=== PATIENT | male | born 1990 | race Caucasian/White ===

== ENCOUNTER 2019-03-09 22:35 | Emergency (ER) | payer MEDICAID, SELFPAY ==
[2019-03-09 22:35] VITALS: BP 125/69; PULSE 86; RESP 18; TEMP 36.8; O2SAT 97; BMI 29.3
--- NOTE | 2019-03-09 22:43 | CT_ITS ---
STUDY: CT ABDOMEN AND PELVIS WITHOUT CONTRAST REASON FOR EXAM: Male, 29 years old. Left flank pain RADIATION DOSAGE (If Supplied By Facility): CTDIvol = ( 7.67 ) mGy, DLP = ( 369.74 ) mGycm TECHNIQUE: Transaxial images were obtained from the dome of the diaphragm to the symphysis pubis without oral contrast, and without intravenous contrast. Sagittal and coronal images were reconstructed. Individualized dose optimization techniques were used for this CT. COMPARISON: July 16, 2015 CT abdomen and pelvis FINDINGS: The visualized lung bases are unremarkable. The visualized portions of the heart are within normal limits. Normal liver. Normal gallbladder and extrahepatic biliary system. Normal spleen. Normal pancreas. Normal bilateral adrenal glands. Normal right kidney. Normal left kidney. Normal visualized stomach. Normal small intestine. Normal colon. The appendix is visualized and appears normal. Normal abdominal aorta. Normal inferior vena cava. Normal retroperitoneum. Normal urinary bladder. Normal abdominal wall. Normal osseous structures. Minute sclerotic lesions bilateral femoral heads consistent with probable bone islands. CT/Abdomen/Pelvis without Cont IMPRESSION: No acute disease. No radiodense urolithiasis. Electronically Signed: Dharmesh Wang MD at 23:29 EDT , Service support ,
--- NOTE | 2019-03-09 22:43 | ED.VISSUMM ---
- ER Visit Summary Date of Service: 03/09/19 Chief Complaint: Flank pain] History of Present Illness: The patient is a 29 M presents to the emergency department flank pain. The patient symptoms began yesterday. He states he had a dull ache in his left flank. He states he would come and go. He is also notices a difficult time urinating. He does not think he had any blood in the urine. He does have history of kidney stone and states that this feels similar. He also has had some nausea, vomiting, diarrhea today. He attributes this to a burrito that he ate at a gas station. He denies any fevers or chills. He is otherwise been in his normal state of health. He has never required lithotripsy or stenting in the past. Physical Examination: Vital signs reviewed General: Well-nourished, well-developed Head: Normocephalic, atraumatic Eyes: Pupils equal and reactive, extraocular muscles intact Neck, supple, no lymphadenopathy Heart: Regular rate and rhythm Respiratory: No distress, clear bilaterally Abdomen: Soft, nontender, nondistended, no peritoneal signs Back: Mild left CVA tenderness Extremities: Nontender, no edema, no cords Skin: Normal color no rash Neuro: Alert and oriented, no focal or lateralizing deficits Test Results: [] Emergency Department Course and Treatment: Patient has very minimal pain in the left CVA. IV was established. He was given fluids, Toradol, and antiemetics. He had marked improvement of his symptoms. Patient underwent CT imaging. There is no definitive stone or evidence of obstruction that is seen. There is some trace blood on his urine. My suspicion is he may have Mal passed a small stone. He is resting comfortably. I do feel that he is safe for outpatient therapy. He will be treated with Zofran and Toradol. He was counseled on concerning symptoms and reasons to return. He will be discharged home. Treatment Plan: [] Disposition: Discharge Impression: 1. Urolithiasis 2. Gastroenteritis This note was generated with [employer] dictation software. It may contain incorrect words, spelling, and punctuation that were not noted in review of the chart prior to signing ED Disposition - Plan for ED Patient: Disposition: Home or Assisted Living Instructions: ED Stone Renal W Colic Prescriptions: Ondansetron [Zofran Odt] 4 mg PO Q8H PRN PRN #10 tab PRN Reason: Nausea RX: Naproxen [Naprosyn] 500 mg PO BID PRN #20 tab Referrals: NOT,DEFINED [NON-STAFF] -
[2019-03-09] MEDS: 0.9% Normal Saline 1,000 ML 250 ML IV (22:56)
[2019-03-09] MEDS: Ketorolac 30 MG/ML Syringe IV (22:56)
[2019-03-09] MEDS: Ondansetron 4 MG/2 ML Vial IV (22:56)
[2019-03-09 23:06] LABS: Absolute Lymphocyte Count 1.88 X10^3/ul (0.83-4.51); Absolute Neutrophil Count 3.8 X10^3/uL (2.0-7.7); Basophil# 0.02 X10^3/uL; Basophil% 0.3 % (0-1); Eosinophil# 0.24 X10^3/uL; Eosinophils% 3.5 % (0-5); Hematocrit 41.8 % (40-54); Hemoglobin 14.1 g/dl (13.0-16.5); Lymphocyte # 1.88 X10^3/ul (4.0); Lymphocyte % 27.3 % (19-41); Mean Corp Hgb Conc 33.7 g/gl (32-36); Mean Corpuscular Hgb 30.9 pg (27.0-32.0); Mean Corpuscular Volume 91.5 fL (80-94); Monocyte# 0.88 X10^3/uL; Monocyte% 12.8 % (0-10); Neutrophil # 3.84 X10^3/uL (2.7-7.7); Neutrophil % 55.7 % (47-70); POSITIVE COUNT NO; POSITIVE DIFFERENTIAL NO; POSITIVE MORPHOLOGY NO; Platelet Count 269 K/mm3 (150-450); RBC Distribution Width CV 13.1 % (11.6-14.6); RBC Distribution Width SD 43.4 fl (35.1-43.9); Red Blood Count 4.57 M/mm3 (4.6-6.2); White Blood Count 6.9 K/mm3 (4.4-11.0)
[2019-03-09 23:20] LABS: Anion Gap 7 (5-15); BUN 13 mg/dL (7-18); Calcium,Total 8.5 mg/dL (8.5-10.1); Chloride 107 mmol/L (98-107); Creatinine, Serum 1.18 mg/dL (0.70-1.30); EST Glomerular Filtration Rate 78 mL/min (>60); Est Glom Filt Rate - Afr Amer 94 mL/min (>60); Estimated Creatinine Clearance 83.35 ml/min; Glucose 107 mg/dL (74-106); Potassium 3.7 mmol/L (3.5-5.1); Sodium Level 142 mmol/L (136-145)
[2019-03-09 23:50] LABS: Bacteria 0 SEEN /hpf (None Seen); Mucous, Urine 0 SEEN /hpf (<or=2+); Squamous Epithelial Cells - UA 0 SEEN /hpf (0-5)
[2019-03-09 23:52] LABS: Color, Urine Yellow (Yellow); Glucose, Dipstick Normal (Normal); Ketone-Dipstick 5 mg/dl (Negative); Leukocyte Esterase-Dipstick 25 /ul (Negative); Nitrite-Dipstick Negative (Negative); Occult Blood-Urine 150 /ul (Negative); Protein-Dipstick Negative (Negative); Specific Gravity, Urine 1.025 (1.002-1.030); Urine Bilirubin Dipstick Negative (Negative); Urine Clarity Clear (Clear); Urine Urobilinogen 4 mg/dl (Normal)
[2019-03-10 00:04] LABS: Red Blood Cells-Urine 5-10 SEEN /hpf (0-5); White Blood Cells 0-5 SEEN /hpf (0-5)
[2019-03-10 00:17] VITALS: BP 128/71; PULSE 76; RESP 16; O2SAT 99
== END 2019-03-10 00:19 | disposition home or self-care (01) ==
PROVIDERS: Emergency Provider Emergency Medicine
DX: N20.9 Urinary calculus, unspecified (principal); K52.9 Noninfective gastroenteritis and colitis, unspecified; Z87.442 Personal history of urinary calculi
CPT/HCPCS: 74176; 80048; 81001; 85025; 96361; 96374; 96375; 99284; J7030; A4216; J2405

== ENCOUNTER 2019-08-06 12:58 | Emergency (ER) | payer MEDICAID, SELFPAY ==
[2019-08-06 12:58] VITALS: BP 113/67; PULSE 98; RESP 18; TEMP 36.2; O2SAT 99; BMI 28.8
--- NOTE | 2019-08-06 13:31 | CT_ITS ---
STUDY: CT ABDOMEN AND PELVIS WITH CONTRAST REASON FOR EXAM: Male, 29 years old. Abdominal pain with nausea and diarrhea. RADIATION DOSAGE (If Supplied By Facility): CTDIvol = ( 13.62 ) mGy, DLP = ( 704.85 ) mGycm TECHNIQUE: Transaxial images were obtained from the dome of the diaphragm to the symphysis pubis with oral contrast. IV/Oral Isovue 300 100CC was administered. Sagittal and coronal images were reconstructed. Individualized dose optimization techniques were used for this CT. COMPARISON: Comparison is made with prior examination dated March 09, 2019. FINDINGS: Mild degree of dependent bibasilar atelectasis. The visualized portions of the heart are within normal limits. Normal liver. Normal gallbladder and extrahepatic biliary system. Normal spleen. Normal pancreas. Normal bilateral adrenal glands. Normal right kidney. Normal left kidney. Normal visualized stomach. There is evidence of small bowel thickening in keeping with a edematous changes involving the ileum as well as the terminal ileum. Increased markings in the surrounding peritoneal fat. Findings are in keeping with inflammatory bowel disease such as Crohn's. There is also evidence of inflammatory changes in the right hemicolon. Scattered sigmoid diverticula. The appendix is visualized and appears normal. Normal abdominal aorta. Normal inferior vena cava. There is borderline retroperitoneal lymphadenopathy with enlarged nodes no greater than 10mm in the short axis diameter. Normal urinary bladder. Small amount of free fluid is seen in the right paracolic gutter. Normal abdominal wall. Normal osseous structures. CT/Abdomen/Pelvis WITH Contrast IMPRESSION: Findings in keeping with a small bowel inflammatory disease as described with fluid in the right flank. Crohn's disease should be ruled out. Electronically Signed: Brian Montgomery, at 15:45 EDT , Service support ,
--- NOTE | 2019-08-06 13:32 | ED.DCSUM_ITS ---
History of Present Illness Chief Complaint: Abd Pain Informant: Patient Onset: Today Context: Gradual Onset Current Severity: Mild Maximum Severity: Moderate Narrative: Patient presents with abdominal pain. He states pain woke him up from sleep at 3 AM this morning. He points to the area from the epigastrium to the umbilicus. He had some mild nausea and some slightly loose stool. He felt like he was running a fever this morning and states that he was sweating. He went to urgent care but was sent here due to concerns for appendicitis. Patient denies any prior abdominal surgeries. He initially thought he just had an ulcer. He does report some reflux symptoms recently. Past Medical History - Allergies and Home Meds Allergies/Adverse Reactions: Allergies amoxicillin Allergy (Verified 08/06/19 12:58) Anaphylaxis Penicillins Allergy (Verified 10/25/16 13:21) Anaphylaxis Primary Care Physician: Care Physician,No Primary [Primary Care Provider] - Prior records reviewed: Yes Past Medical History: - - Reviewed Lives: Spouse/ Significant Other Smoking Status: Current every day smoker Review of Systems General: Reports: Fever Eyes: Denies: Visual changes - bilaterally ENT: Denies: Bilateral ear pain Cardiovascular: Denies: Chest pain Respiratory: Denies: Dyspnea, Cough Gastrointestinal: Reports: Abdominal pain, Nausea, Diarrhea. Denies: Vomiting Genitourinary: Denies: Dysuria Musculoskeletal: Denies: Extremity Pain Skin: Denies: Rash Neurological: Denies: Headache Psych: Denies: Depression, Anxiety Hematologic: Denies: Easy bruising Physical Exam Vital Signs/Narrative: Vital Signs Temp Pulse Resp BP Pulse Ox 08/06/19 12:58 97.1 F L 98 18 113/67 99 Inital Vital Signs reviewed: Yes General: Well nourished, Well developed Head: Normocephalic ENT: Moist mucous membranes Neck: Supple Cardiovascular: Regular rate, Regular rhythm Respiratory: No distress, CTA bilaterally Abdomen: Soft, Nondistended, Normal bowel sounds, Tender - Mild tenderness in the right lower quadrant. He does not have tenderness in the epigastrium on exam. Extremities: Nontender Skin: Normal color, No rash Neurological: Alert, Oriented x3 Psychological: Normal affect Diagnostic/Tx/Re-eval Impressions Abdomen/Pelvis CT 08/06/19 13:31 IMPRESSION: Findings in keeping with a small bowel inflammatory disease as described with fluid in the right flank. Crohn's disease should be ruled out. Electronically Signed: Brian Montgomery, at 15:45 EDT , Service support , 08/06/19 13:31 Abdomen/Pelvis WITH Contrast [CT] Stat Laboratory Results 08/06/19 08/06/19 08/06/19 13:45 13:45 14:10 WBC 11.6 H RBC 4.92 Hgb 15.4 Hct 46.0 MCV 93.5 MCH 31.3 MCHC 33.5 RDW Std Deviation 43.1 RDW Coeff of Katie 12.4 Plt Count 256 MPV 10.1 Immature Gran % (Auto) 0.400 Neut % (Auto) 81.0 H Lymph % (Auto) 8.4 L [place] % (Auto) 9.0 Eos % (Auto) 0.9 Baso % (Auto) 0.3 Absolute Neuts (auto) 9.4 H Absolute Lymphs (auto) 0.97 Nucleated RBC % 0 Sodium 139 Potassium 4.3 Chloride 106 Carbon Dioxide 28.0 Anion Gap 5 BUN 9 Creatinine 0.94 Estim Creat Clear Calc 104.64 Est GFR (MDRD) Af Amer 121 Est GFR (MDRD) Non-Af 100 BUN/Creatinine Ratio 9.6 L Glucose 94 Calcium 8.8 Urine Color Yellow Urine Clarity Clear Urine pH 7.0 Ur Specific [place] 1.005 Urine Protein Negative Urine Glucose (UA) Normal Urine Ketones Negative Urine Occult Blood Negative Urine Nitrite Negative Urine Bilirubin Negative Urine Urobilinogen Normal Ur Leukocyte Esterase Negative Urine RBC 0 SEEN Urine WBC 0 SEEN Ur Squamous Epith Cells 0 SEEN Urine Bacteria 0 SEEN Urine Mucus 0 SEEN - Medical Decision Making Patient was given morphine and Zofran for pain on arrival. Imaging results are discussed with patient. He denies any family history of Crohn's disease. He will be given short course of steroids to help with inflammation. He will be referred to both Dr. Recio, on-call for surgery as well as Dr. Jones. ED Disposition - Plan for ED Patient: Disposition: Home or Assisted Living Diagnosis: Inflammatory bowel disease (Crohn's disease) Instructions: What Is Crohn's Disease? Prescriptions: Prednisone 10 mg PO UD #33 tablet Referrals: Shey Recio MD [STAFF PHYSICIAN] - Piero Jones MD [NON-STAFF] -
[2019-08-06] MEDS: Morphine 4 MG/ML Syringe IV (13:41)
[2019-08-06] MEDS: Ondansetron 4 MG/2 ML Vial IV (13:41)
[2019-08-06] MEDS: 0.9% Normal Saline 1,000 ML 150 ML IV (13:41)
[2019-08-06 13:51] LABS: Absolute Lymphocyte Count 0.97 X10^3/uL (0.83-4.51); Absolute Neutrophil Count 9.4 X10^3/uL (2.0-7.7); Basophil# 0.03 X10^3/uL; Basophil% 0.3 % (0-1); Eosinophils% 0.9 % (0-5); Hemoglobin 15.4 g/dL (13.0-16.5); Lymphocyte # 0.97 X10^3/ul (4.0); Lymphocyte % 8.4 % (19-41); Mean Corp Hgb Conc 33.5 g/dL (32-36); Mean Corpuscular Hgb 31.3 pg (27.0-32.0); Mean Corpuscular Volume 93.5 fL (80-94); Mean Platelet Vol. 10.1 fl (6.2-12.0); Monocyte# 1.04 X10^3/uL; NRBC Flagged by Analyzer 0 % (0-5); Neutrophil # 9.42 X10^3/uL (2.7-7.7); Platelet Count 256 K/mm3 (150-450); RBC Distribution Width CV 12.4 % (11.6-14.6); RBC Distribution Width SD 43.1 fl (35.1-43.9); Red Blood Count 4.92 M/mm3 (4.6-6.2); White Blood Count 11.6 K/mm3 (4.4-11.0)
[2019-08-06 14:05] LABS: Anion Gap 5 (5-15); BUN 9 mg/dL (7-18); BUN/Creat Ratio 9.6 RATIO (10-20); Calcium,Total 8.8 mg/dL (8.5-10.1); Chloride 106 mmol/L (98-107); Creatinine, Serum 0.94 mg/dL (0.70-1.30); EST Glomerular Filtration Rate 100 mL/min (>60); Est Glom Filt Rate - Afr Amer 121 mL/min (>60); Estimated Creatinine Clearance 104.64 ml/min; Glucose 94 mg/dL (74-106); Potassium 4.3 mmol/L (3.5-5.1); Sodium Level 139 mmol/L (136-145)
[2019-08-06 14:20] LABS: Bacteria 0 SEEN /hpf (None Seen); Mucous, Urine 0 SEEN /hpf (<or=2+); Red Blood Cells-Urine 0 SEEN /hpf (0-5); Squamous Epithelial Cells - UA 0 SEEN /hpf (0-5); White Blood Cells 0 SEEN /hpf (0-5)
[2019-08-06 14:41] LABS: Color, Urine Yellow (Yellow); Glucose, Dipstick Normal (Normal); Ketone-Dipstick Negative (Negative); Leukocyte Esterase-Dipstick Negative /ul (Negative); Nitrite-Dipstick Negative (Negative); Occult Blood-Urine Negative /ul (Negative); Protein-Dipstick Negative (Negative); Specific Gravity, Urine 1.005 (1.002-1.030); Urine Bilirubin Dipstick Negative (Negative); Urine Clarity Clear (Clear); Urine Urobilinogen Normal (Normal)
[2019-08-06] MEDS: predniSONE 20 MG Tablet 40 MG PO (16:16)
== END 2019-08-06 16:25 | disposition home or self-care (01) ==
PROVIDERS: Emergency Provider Emergency Medicine
DX: K50.90 Crohn's disease, unspecified, without complications (principal); F17.200 Nicotine dependence, unspecified, uncomplicated; Z88.0 Allergy status to penicillin
CPT/HCPCS: 74177; 80048; 81001; 85025; 96361; 96374; 96375; 99284; J7030; Q9967; J2405

== ENCOUNTER 2020-02-17 15:00 | Emergency (ER) | payer MEDICAID, SELFPAY ==
[2020-02-17 15:00] VITALS: BP 124/86; PULSE 114; RESP 16; TEMP 36.7; O2SAT 98; BMI 27.8
--- NOTE | 2020-02-17 15:23 | CT_ITS ---
STUDY: CT ABDOMEN AND PELVIS WITHOUT CONTRAST REASON FOR EXAM: Male, 30 years old. COUGH SOB, N/V/D, FEVER RADIATION DOSAGE (If Supplied By Facility): CTDIvol = ( 7.05 ) mGy, DLP = ( 348.83 ) mGycm TECHNIQUE: Transaxial images were obtained from the dome of the diaphragm to the symphysis pubis without oral contrast, and without intravenous contrast. Sagittal and coronal images were reconstructed. Individualized dose optimization techniques were used for this CT. COMPARISON: 08/06/2019 FINDINGS: The visualized lung bases are unremarkable. The visualized portions of the heart are within normal limits. Normal liver. Normal gallbladder and extrahepatic biliary system. Normal spleen. Normal pancreas. Normal bilateral adrenal glands. Normal right kidney. Normal left kidney. Normal visualized stomach. Normal small intestine. Normal colon. The appendix is visualized and appears normal. Normal abdominal aorta. Normal inferior vena cava. Normal retroperitoneum. Normal urinary bladder. Normal abdominal wall. Normal osseous structures. CT/Abdomen/Pelvis without Cont IMPRESSION: Normal unenhanced CT of the abdomen and pelvis. Electronically Signed: Benoit López MD at 16:25 EDT Tel , Service support ,
--- NOTE | 2020-02-17 15:23 | EKG12_ITS ---
Test Reason : SOB Blood Pressure : / mmHG Vent. Rate : 085 BPM Atrial Rate : 085 BPM P-R Int : 126 ms QRS Dur : 094 ms QT Int : 380 ms P-R-T Axes : 028 041 019 degrees QTc Int : 452 ms Normal sinus rhythm Normal ECG Confirmed by BIMAL RIVERA ([id number]), slot editor ALESSANDRA LEAL ([id number]) on 02/21/2020 1:17:25 PM Referred By: JOHN Confirmed By:BIMAL RIVERA
--- NOTE | 2020-02-17 15:27 | ED.VIS.GI ---
History of Present Illness Chief Complaint: Shortness of Breath Narrative: Patient presenting for evaluation due to concern for an exacerbation of inflammatory bowel disease. Patient reports that he had a indeterminate diagnosis of inflammatory bowel disease in about August. He had a CT scan that showed stigmata of this, but he never actually followed up with GI for confirmatory diagnosis. Patient reports that over the course of about the last 3 days he has been dealing with GI symptoms. He states that initially started with diarrhea, now it is progressed to abdominal pain and profuse vomiting. Patient states that his emesis is nonbloody and nonbilious, but he does report that he has been having some blood in his stool. He reports that this is a mild to moderate amount. Abdominal pain is crampy diffuse and has no exacerbating relieving factors. Patient states that it has been associated with subjective fevers and sweats, but denies any objective fevers. Patient states that he recently has developed some shortness of breath, and has exertional dyspnea. He denies that he is had cough, he has had somewhat of a sore throat and rhinorrhea associated with this. Patient does have a sick contact that recently was tested for coronavirus, but there are test is currently pending. Review of systems otherwise negative. Past Medical History - Allergies and Home Meds Allergies/Adverse Reactions: Allergies amoxicillin Allergy (Verified 02/17/20 15:02) Anaphylaxis Penicillins Allergy (Verified 02/17/20 15:02) Anaphylaxis Primary Care Physician: Care Physician,No Primary [Primary Care Provider] - Past Medical History: - - Unconfirmed history of inflammatory bowel disease Smoking Status: Current every day smoker Review of Systems All systems negative except as indicated General: Reports: Chills, Fever, Malaise Eyes: Denies: Visual changes - bilaterally, Diplopia ENT: Reports: Rhinorrhea, Sore throat Cardiovascular: Denies: Chest pain, Palpitations Respiratory: Reports: Dyspnea Gastrointestinal: Reports: Abdominal pain, Nausea, Vomiting, Diarrhea Genitourinary: Denies: Dysuria, Hematuria, Frequency Musculoskeletal: Denies: Back pain, Extremity Pain Skin: Denies: Rash, Wounds Neurological: Denies: Headache, Weakness, Numbness Physical Exam Vital Signs/Narrative: Vital Signs Temp Pulse Resp BP Pulse Ox 02/17/20 15:00 98.1 F 114 H 16 124/86 H 98 Inital Vital Signs reviewed: Yes General: Well nourished, Well developed, No Acute Distress Head: Normocephalic, Atraumatic Eyes: Perrl, EOMI ENT: No rhinorrhea, Dry mucous membranes Neck: Supple, Nontender Cardiovascular: Regular rhythm, No murmurs, Tachycardia, - - 2+ radial pulses bilaterally symmetric Respiratory: No distress, CTA bilaterally, Chest nontender Abdomen: Soft, Nondistended, Normal bowel sounds, - - Diffuse tenderness to palpation with no guarding or rebound tenderness noted. Patient does complain of some predominance of pain in the right lower quadrant. Back: Nontender, Normal Inspection Extremities: Nontender, No edema Skin: Normal color, No rash Neurological: Alert, Oriented x3, Cranial nerves II-XII grossly intact, Normal Strength, Normal Sensation Psychological: Normal affect, Normal Mood Diagnostic/Tx/Re-eval Clinical Impression(s) from Imaging Studies Abdomen/Pelvis CT 02/17/20 15:23 IMPRESSION: Normal unenhanced CT of the abdomen and pelvis. Electronically Signed: Benoit López MD at 16:25 EDT Tel , Service support , Chest X-Ray 02/17/20 16:00 IMPRESSION: Normal x-ray examination of the chest. Electronically Signed: Benoit López MD at 16:18 EDT Tel , Service support , Laboratory Data 02/17/20 02/17/20 15:45 15:45 WBC 8.6 RBC 5.14 Hgb 15.6 Hct 47.5 MCV 92.4 MCH 30.4 MCHC 32.8 RDW Std Deviation 43.7 RDW Coeff of Katie 12.8 Plt Count 293 MPV 9.7 Immature Gran % (Auto) 0.500 Neut % (Auto) 56.7 Lymph % (Auto) 28.4 [place] % (Auto) 12.3 H Eos % (Auto) 1.6 Baso % (Auto) 0.5 Absolute Neuts (auto) 4.9 Absolute Lymphs (auto) 2.43 Nucleated RBC % 0 Sodium 140 Potassium 3.4 L Chloride 103 Carbon Dioxide 28.0 Anion Gap 9 BUN 22 H Creatinine 1.23 Estim Creat Clear Calc 79.25 Est GFR (MDRD) Af Amer 89 Est GFR (MDRD) Non-Af 73 BUN/Creatinine Ratio 17.9 Glucose 86 Calcium 9.4 Total Bilirubin 1.90 H AST 23 ALT 51 Alkaline Phosphatase 82 Total Protein 8.2 Albumin 4.5 Globulin 3.7 Albumin/Globulin Ratio 1.2 Lipase 46 L - EKG Follow-up EKG Interpretation: - - Sinus rhythm of [address] segments normal T waves normal UT and QTc intervals no evidence of acute ischemia or arrhythmia - Medical Decision Making Patient presented secondary to mostly GI symptoms. He was somewhat tachycardic and appeared dehydrated, he was ordered Zofran, Bentyl, and 2 L of lactated Ringer's. CBC unremarkable. Chemistry shows acute kidney injury with mild elevation of creatinine to 1.2 and elevation of the patient's BUN with no evidence of acidosis or anion gap. I performed a chest x-ray due to his reports of shortness of breath which was found to be negative. EKG performed on the patient shows a normal sinus rhythm with a normal UT and QTc intervals no evidence of acute ischemia or arrhythmia. Chest x-ray and CT scan of the abdomen and pelvis per radiology negative. I did confirm chest x-ray read by my own review. Patient had significant improvement with interventions in the emergency department and was tolerating p.o. I believe that the patient likely has some dehydration secondary to a GI illness. I did recommend that he needs to follow-up with gastroenterology as his confirmation of an inflammatory bowel disease is still pending. Patient will be sent home with a course of Bentyl and Zofran. He understands signs and symptoms for which to return. ED Disposition - Plan for ED Patient: Disposition: Home or Assisted Living Diagnosis: Gastroenteritis, Dehydration Instructions: ED Gastroenteritis Noninfectious Prescriptions: Dicyclomine HCl [Bentyl] 20 mg PO TIDAC #20 cap Prescription Printed Ondansetron [Zofran Odt] 4 mg PO Q8H PRN PRN #10 tab PRN Reason: Nausea Prescription Printed Referrals: Piero Jones MD [NON-STAFF] - As Needed
[2020-02-17 15:39] VITALS: BP 124/86; PULSE 114; RESP 16; TEMP 36.7; O2SAT 98
[2020-02-17] MEDS: Lactated Ringers 1,000 ML 999 ML IV ×2 (15:46→17:11)
[2020-02-17] MEDS: Dicyclomine 20 MG/2 ML Vial IM (15:46)
[2020-02-17] MEDS: Ondansetron 4 MG/2 ML Vial IV (15:46)
--- NOTE | 2020-02-17 16:00 | RAD_ITS ---
STUDY: X-RAY CHEST REASON FOR EXAM: Male, 30 years old. SOB, COUGH, N/V/D, FEVER TECHNIQUE: Single AP portable view of the chest. COMPARISON: 01/19/2016 FINDINGS: The lungs are clear and expanded. There is no demonstrated pleural abnormality. Normal size heart. Normal mediastinum and nixon. Normal visualized pulmonary arteries. Normal visualized aortic arch and descending thoracic aorta. Normal visualized thoracic spine. Normal visualized ribs, clavicles, and shoulders. There is no demonstrated abnormality of the visualized soft tissue structures of the upper abdomen. RAD/Chest 1 View (Portable) IMPRESSION: Normal x-ray examination of the chest. Electronically Signed: Benoit López MD at 16:18 EDT Tel , Service support ,
[2020-02-17 16:01] LABS: Absolute Lymphocyte Count 2.43 X10^3/uL (0.83-4.51); Absolute Neutrophil Count 4.9 X10^3/uL (2.0-7.7); Basophil# 0.04 X10^3/uL; Basophil% 0.5 % (0-1); Eosinophil# 0.14 X10^3/uL; Eosinophils% 1.6 % (0-5); Hematocrit 47.5 % (40-54); Hemoglobin 15.6 g/dL (13.0-16.5); Lymphocyte # 2.43 X10^3/ul (4.0); Lymphocyte % 28.4 % (19-41); Mean Corp Hgb Conc 32.8 g/dL (32-36); Mean Corpuscular Hgb 30.4 pg (27.0-32.0); Mean Corpuscular Volume 92.4 fL (80-94); Mean Platelet Vol. 9.7 fl (6.2-12.0); Monocyte# 1.05 X10^3/uL; Monocyte% 12.3 % (0-10); NRBC Flagged by Analyzer 0 % (0-5); Neutrophil # 4.85 X10^3/uL (2.7-7.7); Neutrophil % 56.7 % (47-70); Platelet Count 293 K/mm3 (150-450); RBC Distribution Width CV 12.8 % (11.6-14.6); RBC Distribution Width SD 43.7 fl (35.1-43.9); Red Blood Count 5.14 M/mm3 (4.6-6.2); White Blood Count 8.6 K/mm3 (4.4-11.0)
[2020-02-17 16:19] LABS: ALB/GLOB Ratio 1.2 RATIO (0.9-2.4); AST(SGOT) 23 U/L (15-37); Alanine Aminotransfer ALT/SGPT 51 U/L (16-61); Albumin, Serum 4.5 g/dL (3.2-5.0); Alkaline Phosphatase 82 U/L (45-117); Anion Gap 9 (5-15); BUN 22 mg/dL (7-18); BUN/Creat Ratio 17.9 RATIO (10-20); Calcium,Total 9.4 mg/dL (8.5-10.1); Chloride 103 mmol/L (98-107); Creatinine, Serum 1.23 mg/dL (0.70-1.30); EST Glomerular Filtration Rate 73 mL/min (>60); Est Glom Filt Rate - Afr Amer 89 mL/min (>60); Estimated Creatinine Clearance 79.25 ml/min; Globulin 3.7 g/dL (2.2-4.2); Glucose 86 mg/dL (74-106); Lipase 46 U/L (73-393); Potassium 3.4 mmol/L (3.5-5.1); Protein, Total 8.2 g/dL (6.4-8.2); Sodium Level 140 mmol/L (136-145)
[2020-02-17 17:46] VITALS: BP 121/78; PULSE 89; RESP 16; O2SAT 100
== END 2020-02-17 17:47 | disposition home or self-care (01) ==
PROVIDERS: Emergency Provider Emergency Medicine
DX: E86.0 Dehydration (principal); K52.9 Noninfective gastroenteritis and colitis, unspecified; F17.200 Nicotine dependence, unspecified, uncomplicated; Z88.0 Allergy status to penicillin
CPT/HCPCS: 71045; 74176; 80053; 83690; 85025; 93005; 96361; 96372; 96374; 99284; J7120; A4216; J2405

== ENCOUNTER 2021-02-24 12:12 | Emergency (ER) | payer MEDICAID, SELFPAY ==
[2021-02-24 12:14] VITALS: BP 129/86; PULSE 104; RESP 16; TEMP 36; O2SAT 100; BMI 26.4
--- NOTE | 2021-02-24 12:36 | VDLE_ITS ---
Reason For Study: pain RIGHT GSV is normal. CFV is compressible, spontaneous, phasic, competent and demonstrates normal augmentation. FV is compressible, spontaneous, phasic, competent and demonstrates normal augmentation. POP V is compressible, spontaneous, phasic, competent and demonstrates normal augmentation. T/P Trunk is compressible. PTV is compressible. RT PerV is compressible. Multiple heterogeneous areas in the groin with vascular flow noted. The largest measuring .64 x 3.68 cm. Procedure This is a venous duplex using B-mode, color flow and spectral Doppler. Exam performed portable in ED. The exam was abbreviated due to the COVID 19 protocol. The exam was diagnostic. A preliminary report was called and/or faxed to Dr. Castañeda. VL/Venous Duplex US, Unilateral Interpretation Summary There is no evidence of right lower extremity deep vein thrombosis. Right great saphenous vein appears patent and compressible segmentally. Findings are consistent with right groin adenopathy the largest measuring 0.64 x 3.68 cm. Clinical correlation would be appropriate. Ordering Physician: MD Chencho Remus Performed By: Brenton Castillo RVT
--- NOTE | 2021-02-24 14:35 | ED.RN ---
PT STATED HE DIDN'T WANT TO WAIT TO GIVE A URINE SAMPLE AND THAT HE ALSO DIDN'T WANT TO WAIT FOR DC INSTRUCTIONS. PT LEFT ON HIS OWN. PHYSICIAN NOTIFIED.
--- NOTE | 2021-02-24 14:39 | EDS_ITS ---
HPI History of Present Illness Chief Complaint: Lower Extremity Injury Informant: patient Narrative Narrative: 31-year-old male presenting with right lower extremity pain. He states he felt a lump in his right anterior thigh. He was concerned about possibility of blood clot. He states he did a lot of hiking recently. Denies injury. Denies fever. Denies chest pain or shortness of breath. Denies other complaints. Recent Illness/Hospitalization: No PFSH [facility] Medical History (Updated 02/24/21 @ 14:[address] Poly Castañeda MD) Schizophrenia Home Medications haloperidol decanoate 50 mg IM QMONTH 08/06/19 [History Last Taken Unknown] Allergy/AdvReac Type Severity Reaction Status Date / Time amoxicillin Allergy Anaphylaxis Verified 02/24/21 12:13 Penicillins Allergy Anaphylaxis Verified 02/24/21 12:13 Social History Smoking Status: Current every day smoker ROS ROS ED Constitutional Constitutional ED: Denies fever(s) Cardiovascular Cardiovascular: Denies chest pain or palpitations Respiratory/Chest Respiratory/Chest: Denies cough or dyspnea Gastrointestinal Gastrointestinal: Denies abdominal pain, diarrhea, nausea or vomiting Genitourinary Genitourinary ED: Denies dysuria Musculoskeletal Musculoskeletal: Reports other Details: Right lower extremity pain ; Denies myalgias Integumentary Denies rash Neurologic Neurologic: Denies headache(s) EXAM Physical Exam Const Vital Signs: 02/24/21 12:14 Temperature 96.8 F L Temperature Source Temporal Pulse Rate 104 H Respiratory Rate 16 Blood Pressure 129/86 H Blood Pressure Mean 100 Pulse Ox 100 Oxygen Delivery Method Room Air Positive well nourished and well developed General Appearance ED: well developed HEENT Reports normocephalic and head/scalp atraumatic Eyes PERRL and EOMs intact bilaterally Neck supple General: Negative for tenderness Chest Wall inspection of chest normal Resp normal respiratory effort and clear to auscultation bilaterally Cardio regular rate and regular rhythm GI non-tender and non-distended Palpation: soft; Negative for guarding or rebound tenderness present no CVA tenderness Extremity normal to inspection Extremity Narrative: Right anterior thigh tenderness. Active full range of motion. Normal distal pulses. Neuro oriented x3 Sensorium / Orientation: alert Psych mental status grossly normal MDM MDM MDM Narrative Medical decision making narrative: Venous Doppler shows no evidence of DVT, heterogeneous area consistent with lymph nodes in the groin. Patient denies urinary complaints. Denies possibility of STDs. He eloped from the emergency department prior to completion of his evaluation. I attempted to call the patient and he has no phone number listed. Discharge Plan Triage Chief Complaint: Lower Extremity Injury ED Provider: Poly Castañeda Dx/Rx/DC Orders Clinical Impression: Acute pain of right lower extremity Prescriptions: No Action haloperidol decanoate 50 MG/ML solution 50 mg IM QMONTH RF: 0 Primary Care Provider: Care Physician,No Primary Referrals: Migue Connelly MD [STAFF PHYSICIAN] - Care Physician,No Primary [Primary Care Provider] - Disposition Disposition: Against Medical Advice Discharge Date/Time: 02/24/21 14:37
== END 2021-02-24 14:37 | disposition left against medical advice (07) ==
LOC: ED 13:02
PROVIDERS: Emergency Provider Emergency Medicine
DX: M79.604 Pain in right leg (principal); F17.200 Nicotine dependence, unspecified, uncomplicated; F20.9 Schizophrenia, unspecified
CPT/HCPCS: 93971; 99281; 99282

== ENCOUNTER 2021-03-30 22:18 | Emergency (ER) | payer MEDICAID, SELFPAY ==
[2021-03-30 22:19] VITALS: BP 125/67; PULSE 103; RESP 18; TEMP 35.9; O2SAT 97; BMI 27.1
--- NOTE | 2021-03-30 23:15 | EX.ED.DYSGE1 ---
HPI History of Present Illness Chief Complaint: Abscess Informant: patient Onset/Context/Timing Onset: Yesterday Current Severity: Mild Maximum Severity: Moderate Narrative Narrative: Patient presents with pain and swelling to the base of the right thumb that he initially noted yesterday. There are a few small scabbed wounds but patient does not remember how this occurred. He is right-hand dominant. No fever or chills. He denies any drainage from the wounds. [facility] Medical History Schizophrenia Home Medications haloperidol decanoate 50 mg IM QMONTH 08/06/19 [History Last Taken Unknown] doxycycline monohydrate 100 mg PO BID #20 cap 03/30/21 [Rx Last Taken Unknown] Allergy/AdvReac Type Severity Reaction Status Date / Time amoxicillin Allergy Anaphylaxis Verified 03/30/21 22:19 Penicillins Allergy Anaphylaxis Verified 03/30/21 22:19 Social History Smoking Status: Current every day smoker tobacco type: cigarettes ROS ROS ED Constitutional Constitutional ED: Denies chills or fever(s) Eyes Eyes: Denies change in vision ENT ENT ED: Denies sore throat Cardiovascular Cardiovascular: Denies chest pain Respiratory/Chest Respiratory/Chest: Denies cough or dyspnea Gastrointestinal Gastrointestinal: Denies abdominal pain, diarrhea, nausea or vomiting Genitourinary Genitourinary ED: Denies dysuria Musculoskeletal Musculoskeletal: Reports arthralgias; Denies back pain Integumentary Denies rash Neurologic Neurologic: Denies headache(s) or weakness Psychiatric Psychiatric: Denies anxiety or depression Endocrine Endocrinology: Denies polydipsia or polyuria Allergic/Immunologic Allergic/Immunologic ED: Denies urticaria EXAM Physical Exam Const Vital Signs: 03/30/21 22:19 03/30/21 23:55 Temperature 96.7 F L Temperature Source Temporal Pulse Rate 103 H Respiratory Rate 18 16 Blood Pressure 125/67 H Blood Pressure Mean 86 Pulse Ox 97 Oxygen Delivery Method Room Air Positive well nourished and well developed General Appearance ED: well developed HEENT Reports normocephalic and head/scalp atraumatic Eyes PERRL and EOMs intact bilaterally Neck supple Chest Wall inspection of chest normal and palpation of chest normal Resp normal respiratory effort and clear to auscultation bilaterally Cardio regular rate and regular rhythm GI normal to inspection, nondistended, normoactive bowel sounds Palpation: soft Extremity Extremity Narrative: 2 small scabbed wounds at the base of the right thumb. Mild surrounding edema. No sign of flexor tenosynovitis. General Extremety ED: Yes edema and tenderness General Extremity: edema Neuro oriented x3 and no sensory deficits noted Sensorium / Orientation: alert Motor Exam: strength 5/5 throughout Psych mental status grossly normal MDM MDM MDM Narrative Medical decision making narrative: Right hand x-rays are obtained. Patient is treated with a dose of doxycycline. Radiography Diagnostic Testing: Radiology Impression Hand X-Ray 03/30/21 23:15 IMPRESSION: Normal x-ray examination of the hand. Electronically Signed: Bharathi De La Torre DO at 23:58 EDT Tel , Service support , Treatment and Re-Evaluation Comments:: Right hand x-ray per my interpretation reveals no acute bony findings. No evidence of radiopaque foreign body. Wound is cleansed and dressed. Patient is given a prescription for doxycycline. He was given return instructions and referred to local PCP to establish care. Discharge Plan Triage Chief Complaint: Abscess ED Provider: Flower Kirby Dx/Rx/DC Orders Clinical Impression: Cellulitis of hand, right Instructions: ED Cellulitis Prescriptions: New doxycycline monohydrate 100 MG capsule 100 mg PO BID Qty: 20 RF: 0 No Action haloperidol decanoate 50 MG/ML solution 50 mg IM QMONTH RF: 0 Primary Care Provider: Care Physician,No Primary Referrals: Car Ortega MD [STAFF PHYSICIAN] - 1 Week Care Physician,No Primary [Primary Care Provider] - Disposition Disposition: Home, Self Care Discharge Date/Time: 03/30/21 23:56
--- NOTE | 2021-03-30 23:15 | RAD_ITS ---
STUDY: X-RAY - RIGHT HAND REASON FOR EXAM: Male, 31 years old. infection TECHNIQUE: 3 view(s) of the hand. COMPARISON: None. FINDINGS: Normal radiocarpal articulation. Normal distal radioulnar joint. Normal visualized carpal bones. Normal carpal articulations Normal carpometacarpal articulation of the thumb. Normal second through fifth carpometacarpal joints. Normal metacarpi. Normal metacarpophalangeal joint of the thumb. Normal interphalangeal joint of the thumb. Normal proximal and distal phalanges of the thumb. Normal metacarpophalangeal joints of the second through fifth fingers. Normal proximal and distal interphalangeal joints of the second through fifth fingers. Normal phalanges of the second through fifth fingers. The soft tissue structures are unremarkable. RAD/Hand Min 3 Views IMPRESSION: Normal x-ray examination of the hand. Electronically Signed: Bharathi De La Torre DO at 23:58 EDT Tel , Service support ,
[2021-03-30] MEDS: Doxycycline 100 MG CAPSULE PO (23:23)
[2021-03-30 23:55] VITALS: RESP 16
== END 2021-03-30 23:56 | disposition home or self-care (01) ==
PROVIDERS: Emergency Provider Emergency Medicine
DX: L03.113 Cellulitis of right upper limb (principal); F20.9 Schizophrenia, unspecified; F17.210 Nicotine dependence, cigarettes, uncomplicated
CPT/HCPCS: 73130; 99283

== ENCOUNTER 2021-04-26 22:52 | Emergency (ER) | payer MEDICAID, SELFPAY ==
[2021-04-26 22:53] VITALS: BP 142/79; PULSE 89; RESP 18; TEMP 36.8; O2SAT 98; BMI 25.8
--- NOTE | 2021-04-26 23:06 | CT_ITS ---
STUDY: CT ABDOMEN AND PELVIS WITH CONTRAST REASON FOR EXAM: Male, 31 years old. abdomial pain RADIATION DOSAGE (If Supplied By Facility): CTDIvol = ( 9.72 ) mGy, DLP = ( 643.39 ) mGycm TECHNIQUE: Transaxial images were obtained from the dome of the diaphragm to the symphysis pubis without oral contrast. IV 100mL Isovue-370 was administered. Sagittal and coronal images were reconstructed. Individualized dose optimization techniques were used for this CT. COMPARISON: None. FINDINGS: The visualized lung bases are unremarkable. The visualized portions of the heart are within normal limits. Normal liver. The gallbladder is contracted. Normal spleen. Normal pancreas. Normal bilateral adrenal glands. Normal right kidney. Normal left kidney. Distended stomach with oral contents. Normal small intestine. Normal colon. The appendix is visualized and appears normal. Prominent fecal retention throughout the colon. Normal abdominal aorta. Normal inferior vena cava. Normal retroperitoneum. Normal urinary bladder. Normal visualized prostate gland. Normal abdominal wall. Normal osseous structures. CT/Abdomen/Pelvis W IV Cont ONLY IMPRESSION: Unremarkable appendix. Prominent constipation. Distended stomach with oral contrast Electronically Signed: Bharathi De La Torre DO at 0:08 EDT Tel , Service support ,
--- NOTE | 2021-04-26 23:06 | ED.VIS.GI ---
HPI HPI - GI History of Present Illness Chief Complaint: Abd Pain Narrative Narrative: Patient presenting with abdominal pain which she describes as generalized in the lower part of his abdomen on the right and left. Patient states that he has had nausea and diarrhea for the last 5 days. Patient has been previously seen in the ED and was told that he may have Crohn's disease however he never made follow-up because he states he has memory issues. Patient is not on any medications for Crohn's disease at this time. 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 Patient denies any fevers. She denies black or bloody stools. [facility] Medical History Mitral valve prolapse Schizophrenia Home Medications haloperidol decanoate 50 mg IM QMONTH 08/06/19 [History Last Taken Unknown] promethazine 25 mg PO Q6H PRN PRN #10 tablet 04/27/21 [Rx Last Taken Unknown] Allergy/AdvReac Type Severity Reaction Status Date / Time amoxicillin Allergy Anaphylaxis Verified 04/26/21 22:53 Penicillins Allergy Anaphylaxis Verified 04/26/21 22:53 Social History Smoking Status: Current every day smoker tobacco type: cigarettes ROS ROS ED Constitutional Constitutional ED: Denies chills or fever(s) ENT ENT ED: Denies rhinorrhea or sore throat Cardiovascular Cardiovascular: Denies chest pain or palpitations Respiratory/Chest Respiratory/Chest: Denies cough or dyspnea Gastrointestinal Gastrointestinal: Reports abdominal pain, diarrhea, nausea and vomiting Genitourinary Genitourinary ED: Denies dysuria or hematuria Musculoskeletal Musculoskeletal: Denies arthralgias or myalgias Integumentary Denies abscess or rash Neurologic Neurologic: Denies headache(s) or paresthesias Psychiatric Psychiatric: Denies anxiety or depression EXAM Physical Exam Const Vital Signs: 04/26/21 22:53 Temperature 98.2 F Temperature Source Temporal Pulse Rate 89 Respiratory Rate 18 Blood Pressure 142/79 H Blood Pressure Mean 100 Pulse Ox 98 Oxygen Delivery Method Room Air Positive well nourished General Appearance ED: NAD HEENT normocephalic and trauma Eyes PERRL and EOMs intact bilaterally General Eye ED: Negative for scleral icterus Resp normal respiratory effort and clear to auscultation bilaterally Cardio regular rate and regular rhythm GI non-distended Palpation: soft and tender LLQ and RLQ Back/Spine no CVA tenderness Neuro Sensorium / Orientation: alert, oriented to person, oriented to place and oriented to time Psych mental status grossly normal and thought process normal Skin Lesions: no lesions Rashes: no rashes MDM MDM MDM Narrative Medical decision making narrative: Patient presenting with abdominal pain. He states this is going on for about 5 days. Patient denies fever or chills. He does complain of some diarrhea. Patient has had work done today which shows no leukocytosis with a stable hemoglobin hematocrit. Renal function electrolytes are normal. LFTs are normal. Urinalysis is negative. Patient declined narcotic medication due to current detox from methamphetamine and he does not want anything its mind altering. Patient was given Zofran and Solu-Medrol given the recent diagnosis of probable Crohn's flare. His pain and nausea have improved. CT abdomen pelvis does not show anything acute other than what looks like constipation. Patient will be given Phenergan for home as well as magnesium citrate. He requested Benadryl so he can sleep when he gets back home. Patient can return precautions. He will follow up outpatient with GI. Impression: 1. Abdominal pain 2. Nausea vomiting 3. Diarrhea 4. Constipation Lab Data Labs: Laboratory Results - last 24 hr 04/26/21 04/26/21 04/26/21 23:04 23:12 23:12 WBC 8.5 RBC 4.39 L Hgb 13.4 Hct 40.6 MCV 92.5 MCH 30.5 MCHC 33.0 RDW Std Deviation 42.5 RDW Coeff of Katie 12.4 Plt Count 320 MPV 9.8 Immature Gran % (Auto) 0.600 Neut % (Auto) 44.9 L Lymph % (Auto) 42.1 H [place] % (Auto) 9.1 Eos % (Auto) 2.7 Baso % (Auto) 0.6 Absolute Neuts (auto) 3.8 Absolute Lymphs (auto) 3.56 Nucleated RBC % 0 Sodium 139 Potassium 3.8 Chloride 103 Carbon Dioxide 29.0 Anion Gap 7 BUN 19 H Creatinine 1.15 Estim Creat Clear Calc 83.99 Est GFR (MDRD) Af Amer 95 Est GFR (MDRD) Non-Af 79 BUN/Creatinine Ratio 16.5 Glucose 86 Calcium 8.6 Total Bilirubin 0.50 AST 38 H ALT 72 H Alkaline Phosphatase 72 Total Protein 7.0 Albumin 3.6 Globulin 3.4 Albumin/Globulin Ratio 1.1 Lipase 100 Urine Color Yellow Urine Clarity Clear Urine pH 6.5 Ur Specific [place] 1.015 Urine Protein Negative Urine Glucose (UA) Normal Urine Ketones Negative Urine Occult Blood Negative Urine Nitrite Negative Urine Bilirubin Negative Urine Urobilinogen Normal Ur Leukocyte Esterase 100 H Urine RBC 0 SEEN Urine WBC 0-5 SEEN Ur Squamous Epith Cells 0 SEEN Urine Bacteria 0 SEEN Urine Mucus 0 SEEN Radiography Diagnostic Testing: Radiology Impression Abdomen/Pelvis CT 04/26/21 23:06 IMPRESSION: Unremarkable appendix. Prominent constipation. Distended stomach with oral contrast Electronically Signed: Bharathi De La Torre DO at 0:08 EDT Tel , Service support , Discharge Plan Triage Chief Complaint: Abd Pain ED Provider: Amish Leroy Dx/Rx/DC Orders Instructions: ED Constipation (Adult), ED Unknown Causes of Abdominal ... Prescriptions: New promethazine 25 mg tablet 25 mg PO Q6H PRN PRN (Reason: Nausea) Qty: 10 RF: 0 No Action haloperidol decanoate 50 MG/ML solution 50 mg IM QMONTH RF: 0 Primary Care Provider: Care Physician,No Primary Referrals: Care Physician,No Primary [Primary Care Provider] - Disposition Disposition: Home, Self Care
[2021-04-26 23:19] LABS: Bacteria 0 SEEN /hpf (None Seen); Mucous, Urine 0 SEEN /hpf (<or=2+); Red Blood Cells-Urine 0 SEEN /hpf (0-5); Squamous Epithelial Cells - UA 0 SEEN /hpf (0-5)
[2021-04-26 23:23] LABS: Absolute Lymphocyte Count 3.56 X10^3/uL (0.83-4.51); Absolute Neutrophil Count 3.8 X10^3/uL (2.0-7.7); Basophil# 0.05 X10^3/uL; Basophil% 0.6 % (0-1); Eosinophil# 0.23 X10^3/uL; Eosinophils% 2.7 % (0-5); Hematocrit 40.6 % (40-54); Hemoglobin 13.4 g/dL (13.0-16.5); Lymphocyte # 3.56 X10^3/ul (0.83-4.51); Lymphocyte % 42.1 % (19-41); Mean Corpuscular Hgb 30.5 pg (27.0-32.0); Mean Corpuscular Volume 92.5 fL (80-94); Mean Platelet Vol. 9.8 fl (6.2-12.0); Monocyte# 0.77 X10^3/uL; Monocyte% 9.1 % (0-10); NRBC Flagged by Analyzer 0 % (0-5); Neutrophil # 3.79 X10^3/uL (2.7-7.7); Neutrophil % 44.9 % (47-70); Platelet Count 320 K/mm3 (150-450); RBC Distribution Width CV 12.4 % (11.6-14.6); RBC Distribution Width SD 42.5 fl (35.1-43.9); Red Blood Count 4.39 M/mm3 (4.6-6.2); White Blood Count 8.5 K/mm3 (4.4-11.0)
[2021-04-26 23:27] LABS: Color, Urine Yellow (Yellow); Glucose, Dipstick Normal (Normal); Ketone-Dipstick Negative (Negative); Leukocyte Esterase-Dipstick 100 /ul (Negative); Nitrite-Dipstick Negative (Negative); Occult Blood-Urine Negative /ul (Negative); Protein-Dipstick Negative (Negative); Specific Gravity, Urine 1.015 (1.002-1.030); Urine Bilirubin Dipstick Negative (Negative); Urine Clarity Clear (Clear); Urine Urobilinogen Normal (Normal); Urine pH 6.5 (5.0 - 8.0)
[2021-04-26] MEDS: MethylPREDNISolone 125 MG/2 ML Vial IV (23:31)
[2021-04-26] MEDS: Ondansetron 4 MG/2 ML Vial IV (23:31)
[2021-04-26 23:35] LABS: ALB/GLOB Ratio 1.1 RATIO (0.9-2.4); AST(SGOT) 38 U/L (15-37); Alanine Aminotransfer ALT/SGPT 72 U/L (16-61); Albumin, Serum 3.6 g/dL (3.2-5.0); Alkaline Phosphatase 72 U/L (45-117); Anion Gap 7 (5-15); BUN 19 mg/dL (7-18); BUN/Creat Ratio 16.5 RATIO (10-20); Calcium,Total 8.6 mg/dL (8.5-10.1); Chloride 103 mmol/L (98-107); Creatinine, Serum 1.15 mg/dL (0.70-1.30); EST Glomerular Filtration Rate 79 mL/min (>60); Est Glom Filt Rate - Afr Amer 95 mL/min (>60); Estimated Creatinine Clearance 83.99 ml/min; Globulin 3.4 g/dL (2.2-4.2); Glucose 86 mg/dL (74-106); Lipase 100 U/L (73-393); Potassium 3.8 mmol/L (3.5-5.1); Sodium Level 139 mmol/L (136-145)
[2021-04-26 23:59] LABS: White Blood Cells 0-5 SEEN /hpf (0-5)
[2021-04-27] MEDS: DiphenhydrAMINE 50 MG/ML Syringe 25 MG IV (00:48)
[2021-04-27] MEDS: Magnesium Citrate 300 ML PO (00:48)
[2021-04-27 01:01] VITALS: BP 146/78; PULSE 74; RESP 18; O2SAT 99
== END 2021-04-27 01:03 | disposition home or self-care (01) ==
PROVIDERS: Emergency Provider Student in an Organized Health Care Education/Training Program
DX: K59.00 Constipation, unspecified (principal); R10.30 Lower abdominal pain, unspecified; R19.7 Diarrhea, unspecified; R11.2 Nausea with vomiting, unspecified; F17.210 Nicotine dependence, cigarettes, uncomplicated
CPT/HCPCS: 74177; 80053; 81001; 83690; 85025; 96374; 96375; 99283; Q9967; A4216; J2405

== ENCOUNTER 2021-06-15 02:28 | Emergency (ER) | payer MEDICAID, SELFPAY ==
[2021-06-15 02:28] VITALS: BP 136/84; PULSE 118; RESP 16; TEMP 36.6; O2SAT 100; BMI 25.8
[2021-06-15 02:31] VITALS: BP 136/84; PULSE 118; RESP 16; TEMP 36.6; O2SAT 100
[2021-06-15] MEDS: Clindamycin HCl 150 MG Capsule 450 MG PO (04:23)
[2021-06-15 04:25] VITALS: RESP 18
--- NOTE | 2021-06-15 06:12 | EX.ED.DYSGE1 ---
HPI History of Present Illness Chief Complaint: Abscess Narrative Narrative: 31-year-old male presenting with cellulitis on the right thigh. He notes that it was smaller this morning. He states he has no history of MRSA. He is not had any systemic signs or symptoms. Patient does state that he has cellulitis in the past. He denies significant pain. He has a history of IV drug abuse and states he does not like needles. [facility] Medical History Mitral valve prolapse Schizophrenia Home Medications haloperidol decanoate 50 mg IM QMONTH 08/06/19 [History Last Taken Unknown] promethazine 25 mg PO Q6H PRN PRN #10 tablet 04/27/21 [Rx Last Taken Unknown] clindamycin HCl [Cleocin HCl] 450 mg PO TID 10 Days #90 cap 06/15/21 [Rx Last Taken Unknown] Allergy/AdvReac Type Severity Reaction Status Date / Time amoxicillin Allergy Anaphylaxis Verified 06/15/21 02:31 Penicillins Allergy Anaphylaxis Verified 06/15/21 02:31 Social History Smoking Status: Current every day smoker tobacco type: cigarettes ROS ROS ED Constitutional Constitutional ED: Denies chills or fever(s) Eyes Eyes: Denies blurry vision or diplopia ENT ENT ED: Denies rhinorrhea or sore throat Cardiovascular Cardiovascular: Denies chest pain or palpitations Respiratory/Chest Respiratory/Chest: Denies cough or dyspnea Gastrointestinal Gastrointestinal: Denies abdominal pain, nausea or vomiting Genitourinary Genitourinary ED: Denies dysuria or hematuria Musculoskeletal Musculoskeletal: Denies arthralgias or neck pain Integumentary Reports rash; Denies abscess Neurologic Neurologic: Denies headache(s) EXAM Physical Exam Const Vital Signs: 06/15/21 02:28 06/15/21 02:31 06/15/21 04:25 Temperature 98 F 98 F Temperature Source Temporal Temporal Pulse Rate 118 H 118 H Respiratory Rate 16 16 18 Blood Pressure 136/84 H 136/84 H Blood Pressure Mean 101 101 Pulse Ox 100 100 Oxygen Delivery Method Room Air Room Air Positive well nourished General Appearance ED: NAD; Negative for pallor HEENT Reports moist mucous membranes Negative for trauma Eyes PERRL and EOMs intact bilaterally Resp normal respiratory effort Cardio regular rate and regular rhythm Extremity Extremity Narrative: Right thigh has an area of erythema of about 3 cm in a circular pattern. There is a small rodrigues in the center. There is no other fluctuance. There is no active drainage. There is no crepitance palpated. Neuro oriented x3 and CN's II-XII intact bilaterally Sensorium / Orientation: alert Skin no rashes or lesions noted General Skin Exam: Negative for jaundice or pallor MDM MDM MDM Narrative Medical decision making narrative: Patient presenting with cellulitis on the right thigh. I do not appreciate an abscess. Patient will be started on clindamycin he is given structures to use warm compresses. Patient given return precautions. Impression: 1. Cellulitis right thigh Discharge Plan Triage Chief Complaint: Abscess ED Provider: Amish Leroy Dx/Rx/DC Orders Instructions: ED Cellulitis Prescriptions: New clindamycin HCl [Cleocin HCl] 150 mg capsule 450 mg PO TID 10 Days Qty: 90 RF: 0 No Action haloperidol decanoate 50 MG/ML solution 50 mg IM QMONTH RF: 0 promethazine 25 mg tablet 25 mg PO Q6H PRN PRN (Reason: Nausea) Qty: 10 RF: 0 Stand Alone Forms: ED Work / School Excuse Primary Care Provider: Care Physician,No Primary Referrals: Car Ortega MD [STAFF PHYSICIAN] - As soon as possible Care Physician,No Primary [Primary Care Provider] - Disposition Disposition: Home, Self Care Discharge Date/Time: 06/15/21 04:29
== END 2021-06-15 04:29 | disposition home or self-care (01) ==
PROVIDERS: Emergency Provider Student in an Organized Health Care Education/Training Program
DX: L03.115 Cellulitis of right lower limb (principal); F17.210 Nicotine dependence, cigarettes, uncomplicated; F20.9 Schizophrenia, unspecified
CPT/HCPCS: 99283

== ENCOUNTER 2021-07-10 16:15 | Emergency (ER) | payer MEDICAID, SELFPAY ==
[2021-07-10 16:16] VITALS: BP 136/83; PULSE 111; RESP 16; TEMP 36.1; O2SAT 96; BMI 24.2
--- NOTE | 2021-07-10 16:32 | ED.RN ---
PT STATES HE USED METH TODAY. STATES HE KNOWS HE NEEDS TO BE ACTIVELY USING TO GET INTO DETOX. ALSO IS ON HOUSE ARREST AT THIS TIME.
[2021-07-10 16:38] LABS: Absolute Lymphocyte Count 1.34 X10^3/uL (0.83-4.51); Absolute Neutrophil Count 3.5 X10^3/uL (2.0-7.7); Basophil# 0.06 X10^3/uL; Eosinophil# 0.22 X10^3/uL; Eosinophils% 3.8 % (0-5); Hematocrit 43.3 % (40-54); Lymphocyte # 1.34 X10^3/ul (0.83-4.51); Lymphocyte % 23.1 % (19-41); Mean Corp Hgb Conc 32.3 g/dL (32-36); Mean Corpuscular Hgb 29.7 pg (27.0-32.0); Mean Corpuscular Volume 91.9 fL (80-94); Mean Platelet Vol. 9.9 fl (6.2-12.0); Monocyte% 10.3 % (0-10); NRBC Flagged by Analyzer 0 % (0-5); Neutrophil # 3.54 X10^3/uL (2.7-7.7); Neutrophil % 60.9 % (47-70); Platelet Count 297 K/mm3 (150-450); RBC Distribution Width CV 12.9 % (11.6-14.6); RBC Distribution Width SD 43.7 fl (35.1-43.9); Red Blood Count 4.71 M/mm3 (4.6-6.2); White Blood Count 5.8 K/mm3 (4.4-11.0)
[2021-07-10 16:55] LABS: ALB/GLOB Ratio 0.9 RATIO (0.9-2.4); AST(SGOT) 24 U/L (15-37); Alanine Aminotransfer ALT/SGPT 47 U/L (16-61); Albumin, Serum 3.5 g/dL (3.2-5.0); Alkaline Phosphatase 79 U/L (45-117); Anion Gap 5 (5-15); BUN 9 mg/dL (7-18); BUN/Creat Ratio 9.1 RATIO (10-20); Calcium,Total 8.9 mg/dL (8.5-10.1); Chloride 103 mmol/L (98-107); Creatinine, Serum 0.99 mg/dL (0.70-1.30); EST Glomerular Filtration Rate 94 mL/min (>60); Est Glom Filt Rate - Afr Amer 113 mL/min (>60); Estimated Creatinine Clearance 97.56 ml/min; Globulin 3.7 g/dL (2.2-4.2); Glucose 131 mg/dL (74-106); Protein, Total 7.2 g/dL (6.4-8.2); Sodium Level 139 mmol/L (136-145)
--- NOTE | 2021-07-10 16:58 | EX.ED.SAOD ---
HPI History of Present Illness Chief Complaint: Substance Abuse Detail of Chief Complaint: Requesting detox from methamphetamines and fentanyl Informant: patient Narrative Narrative: Patient presents to the emergency department stating that he uses meth daily usually via IV route. Patient uses fentanyl once or twice a week. His last use of methamphetamines was earlier today and his last use of fentanyl was maybe 3 or 4 days ago. Patient states that 180 referred him to the hospital to admit for detox. Patient states that he does not have any withdrawal symptoms currently as he had just used meth. Patient states that he does not want Suboxone but would rather go through withdrawal symptoms on his own for that. He thought they could do detox for methamphetamines inpatient at the hospital. Patient denies recent illness otherwise. He denies alcohol use. [facility] Medical History Mitral valve prolapse Schizophrenia Home Medications paliperidone palmitate [Invega Sustenna] 1 mg IM QMONTH 07/10/21 [History Last Taken Unknown] Allergy/AdvReac Type Severity Reaction Status Date / Time amoxicillin Allergy Anaphylaxis Verified 06/15/21 02:31 Penicillins Allergy Anaphylaxis Verified 06/15/21 02:31 Social History Smoking Status: Current every day smoker tobacco type: cigarettes ROS ROS ED Constitutional Constitutional ED: Reports systems reviewed and no addt'l complaints, except as documented; Denies body ache(s), change in weight or chills Eyes Eyes: Denies acute decrease in peripheral vision, change in vision, double vision or loss of vision ENT ENT ED: Reports none; Denies ear pain, lip swelling, loss taste/smell, neck pain, otalgia or sore throat Cardiovascular Cardiovascular: Reports none; Denies abdominal pain, chest pain with activity, leg edema, lightheadedness, palpitations, rapid heart rate or syncope Respiratory/Chest Respiratory/Chest: Reports none; Denies change in mental status, dry cough, dyspnea, hemoptysis, shortness of breath at rest or shortness of breath with exertion Gastrointestinal Gastrointestinal: Reports none; Denies abdominal pain, change in stool character, diarrhea, hematemesis, hematochezia, melena, rectal bleeding or vomiting Genitourinary Genitourinary ED: Reports none; Denies abdominal discomfort, anuria, dysuria, genital pain or polyuria Musculoskeletal Musculoskeletal: Reports none; Denies arthralgias, back pain, difficulty walking, extremity pain, muscle weakness or myalgias Integumentary Reports none; Denies abscess or rash Neurologic Neurologic: Reports none; Denies abnormal gait, confusion, focal weakness, frequent falls, headache(s), loss of vision, numbness, paresthesias, radicular pain, vertigo or weakness Psychiatric Psychiatric: Reports systems reviewed and no addt'l complaints, except as documented and none; Denies behavioral changes, confusion, difficulty concentrating, hallucinations, suicidal ideation, tactile hallucinations or visual hallucinations Endocrine Endocrinology: Denies none, cold intolerance, excessive sweating, fatigue or heat intolerance Hematologic/Lymphatic Hematologic/Lymphatic: Reports none; Denies anemia, easy bleeding or easy bruising Allergic/Immunologic Allergic/Immunologic ED: Denies as per HPI, none, lip swelling, mouth swelling, throat swelling, tongue swelling or hives EXAM Physical Exam Const Vital Signs: 07/10/21 16:16 Temperature 97 F L Temperature Source Temporal Pulse Rate 111 H Respiratory Rate 16 Blood Pressure 136/83 H Blood Pressure Mean 100 Pulse Ox 96 Oxygen Delivery Method Room Air Positive well nourished and well developed General Appearance ED: well developed and NAD HEENT Reports TM's clear and moist mucous membranes normocephalic and atraumatic; Negative for trauma or tenderness Tympanic Membrane ED: Yes TM's clear Eyes PERRL and EOMs intact bilaterally General Eye ED: Negative for pale conjunctiva or scleral icterus Neck no lymphadenopathy, supple and no JVD General: Negative for tenderness Chest Wall inspection of chest normal and palpation of chest normal Chest: Negative for tenderness Resp normal respiratory effort and clear to auscultation bilaterally Effort and Inspection: Negative for respiratory distress or pain with movement Auscultation: Negative for rhonchi, wheezes or diminished lung sounds Cardio regular rate, regular rhythm, S1 normal heart sound, S2 normal heart sound and no murmurs Peripheral Pulses: pulses 2+ throughout GI normal to inspection, nondistended, normoactive bowel sounds, soft to palpation, non-tender, non-distended and no masses Back/Spine no CVA tenderness and no thoracic nor lumbar tenderness Extremity normal to inspection General Extremety ED: Negative for edema General Extremity: Negative for edema Neuro oriented x3, CN's II-XII intact bilaterally, no sensory deficits noted and gait normal Sensorium / Orientation: awake, alert, oriented to person, oriented to place and oriented to time Motor Exam: strength 5/5 throughout and strength abnormal Psych mental status grossly normal Skin no rashes or lesions noted and no wounds MDM MDM MDM Narrative Medical decision making narrative: Results discussed with patient. I discussed case with Calderon from [facility] who was under the impression that patient had recently used fentanyl and sentiment for detox from the fentanyl. Patient understands that there is no inpatient detox for methamphetamines here. Patient was told that there was a facility in [facility] that will do detox for methamphetamines if he is interested. Patient now admits to me that he does not use fentanyl and he only said that because he thought he was in a get detox. Patient will be discharged to home with advice to follow-up back with [facility]. Lab Data Attestation: I reviewed the patient's lab results. Labs: Laboratory Results - last 24 hr 07/10/21 07/10/21 16:29 16:29 WBC 5.8 RBC 4.71 Hgb 14.0 Hct 43.3 MCV 91.9 MCH 29.7 MCHC 32.3 RDW Std Deviation 43.7 RDW Coeff of Katie 12.9 Plt Count 297 MPV 9.9 Immature Gran % (Auto) 0.900 Neut % (Auto) 60.9 Lymph % (Auto) 23.1 [place] % (Auto) 10.3 H Eos % (Auto) 3.8 Baso % (Auto) 1.0 Absolute Neuts (auto) 3.5 Absolute Lymphs (auto) 1.34 Nucleated RBC % 0 Sodium 139 Potassium 4.0 Chloride 103 Carbon Dioxide 31.0 Anion Gap 5 BUN 9 Creatinine 0.99 Estim Creat Clear Calc 97.56 Est GFR (MDRD) Af Amer 113 Est GFR (MDRD) Non-Af 94 BUN/Creatinine Ratio 9.1 L Glucose 131 H Calcium 8.9 Total Bilirubin 0.30 AST 24 ALT 47 Alkaline Phosphatase 79 Total Protein 7.2 Albumin 3.5 Globulin 3.7 Albumin/Globulin Ratio 0.9 Discharge Plan Triage Chief Complaint: Substance Abuse ED Provider: Rachel Paiz Dx/Rx/DC Orders Clinical Impression: Methamphetamine abuse Instructions: Understanding Methamphetamine ..., ED Drug Abuse Prescriptions: No Action Invega Sustenna 156 mg/mL syringe 1 mg IM QMONTH RF: 0 Primary Care Provider: Care Physician,No Primary Referrals: Care Physician,No Primary [Primary Care Provider] - Activity Restrictions/Additional Instructions: Follow back up with 180 if interested in detox facility in [facility] called [facility]
[2021-07-10 17:18] VITALS: PULSE 98; RESP 18; O2SAT 98
== END 2021-07-10 17:25 | disposition home or self-care (01) ==
PROVIDERS: Emergency Provider Emergency Medicine
DX: F15.10 Other stimulant abuse, uncomplicated (principal); F17.210 Nicotine dependence, cigarettes, uncomplicated; F20.9 Schizophrenia, unspecified; I34.1 Nonrheumatic mitral (valve) prolapse
CPT/HCPCS: 36415; 80053; 82077; 85025; 99282

== ENCOUNTER 2022-02-28 10:05 | Emergency (ER) | payer MEDICAID, SELFPAY ==
[2022-02-28 10:06] VITALS: BP 133/86; PULSE 114; RESP 18; TEMP 35.9; O2SAT 97; BMI 29.0
--- NOTE | 2022-02-28 10:20 | EKG12_ITS ---
Test Reason : SYNCOPE Blood Pressure : / mmHG Vent. Rate : 095 BPM Atrial Rate : 095 BPM P-R Int : 126 ms QRS Dur : 084 ms QT Int : 338 ms P-R-T Axes : 032 047 026 degrees QTc Int : 424 ms Normal sinus rhythm Normal ECG Confirmed by MALIK LOPEZ MD ([id number]), editor trade journal MALISSA AVALOS ([id number]) on 03/01/2022 10:11:38 AM Referred By: SILVIA Confirmed By:MALIK LOPEZ MD
--- NOTE | 2022-02-28 10:20 | RAD_ITS ---
STUDY: X-RAY CHEST REASON FOR EXAM: Male, 32 years old. chest pain TECHNIQUE: AP COMPARISON: 02/17/2020 FINDINGS: The lungs are clear and expanded. There is no demonstrated pleural abnormality. Normal size heart. Normal mediastinum and nixon. Normal visualized pulmonary arteries. Normal visualized aortic arch and descending thoracic aorta. Normal visualized thoracic spine. Normal visualized ribs, clavicles, and shoulders. There is no demonstrated abnormality of the visualized soft tissue structures of the upper abdomen. RAD/Chest 1 View (Portable) IMPRESSION: Nonacute portable x-ray examination of the chest. Electronically Signed: Xavier Mullins MD ([place]) at 11:03 EDT ,
--- NOTE | 2022-02-28 10:20 | EX.ED.DYSGE1 ---
HPI History of Present Illness Chief Complaint: Syncope Narrative Narrative: 32-year-old male presenting with an episode of syncope. Patient states he was feeling otherwise well this morning and went to lift an 80 pound beam over his head and had an episode of syncope. He states that he woke up with the beam across his chest. He has some slight sternal chest tenderness. He states he does feel little bit lightheaded. Patient admits to hitting his head but has not had any unstable gait, nausea, vomiting, visual complaints. He states he had a concussion before he does not feel like he has had 1. He denies neck pain. Patient states that he did have a red bull this morning and then drank 3 Gatorade's and 1 water while at work. He does not think he is dehydrated. He states he is making urine normally. Patient also states that he is a recovering addict and does not want any narcotic medications. [facility] Medical History (Updated 02/28/22 @ 11:06 by Sheridan Tinajero) Anxiety Asthma Bipolar disorder Carpal tunnel syndrome on right DVT (deep venous thrombosis) Intermittent explosive disorder in adult Mitral valve prolapse Polysubstance (excluding opioids) dependence PTSD (post-traumatic stress disorder) Schizophrenia Home Medications paliperidone palmitate [Invega Sustenna] 1 mg IM QMONTH 07/10/21 [History Last Taken Unknown] atomoxetine [Strattera] 25 mg PO DAILY 02/28/22 [History Last Taken Unknown] hydroxyzine pamoate [Vistaril] 50 mg PO BID 02/28/22 [History Last Taken Unknown] naltrexone microspheres [Vivitrol] 380 mg IM QMONTH 02/28/22 [History Last Taken Unknown] trazodone 50 mg PO QHS 02/28/22 [History Last Taken Unknown] Allergy/AdvReac Type Severity Reaction Status Date / Time amoxicillin Allergy Anaphylaxis Verified 02/28/22 10:08 Penicillins Allergy Anaphylaxis Verified 02/28/22 10:08 Social History Smoking Status: Current every day smoker tobacco type: cigarettes ROS ROS ED Constitutional Constitutional ED: Denies chills or fever(s) Eyes Eyes: Denies blurry vision or diplopia ENT ENT ED: Denies rhinorrhea or sore throat Cardiovascular Cardiovascular: Reports chest pain; Denies palpitations or racing heartbeat Respiratory/Chest Respiratory/Chest: Denies cough or dyspnea Gastrointestinal Gastrointestinal: Denies abdominal pain, constipation, diarrhea, nausea or vomiting Genitourinary Genitourinary ED: Denies dysuria or hematuria Musculoskeletal Musculoskeletal: Denies arthralgias, myalgias or neck pain Integumentary Denies rash Neurologic Neurologic: Denies headache(s) or weakness Psychiatric Psychiatric: Denies anxiety or depression EXAM Physical Exam Const Vital Signs: 02/28/22 10:06 02/28/22 11:14 02/28/22 12:13 Temperature 96.6 F L Temperature Source Temporal Pulse Rate 114 H 67 Pulse Rate [Lying] 88 Pulse Rate [Sitting (for 1 minute prior to obtaining)] 100 Pulse Rate [Standing (for 1 minute prior to obtaining)] 101 H Respiratory Rate 18 15 Blood Pressure 133/86 H 129/88 H Blood Pressure [Lying] 120/73 Blood Pressure [Sitting (for 1 minute prior to obtaining)] 121/81 H Blood Pressure [Standing (for 1 minute prior to obtaining)] 117/80 Blood Pressure Mean 101 Blood Pressure Mean [Lying] 88 Blood Pressure Mean [Sitting (for 1 minute prior to obtaining)] 94 Blood Pressure Mean [Standing (for 1 minute prior to obtaining)] 92 Pulse Ox 97 97 Oxygen Delivery Method Room Air Positive well nourished and well developed General Appearance ED: well developed and NAD; Negative for pallor HEENT Reports moist mucous membranes Negative for trauma Eyes PERRL and EOMs intact bilaterally Chest Wall Chest Narrative: Tenderness to palpation over the sternum. No ecchymosis or deformity. Equal symmetric breath sounds and chest wall rise. Resp normal respiratory effort and clear to auscultation bilaterally Auscultation: Negative for rales, rhonchi or wheezes Cardio regular rate and regular rhythm GI normal to inspection, nondistended, normoactive bowel sounds Back/Spine Cervical Spine: Negative for cervical spine tenderness Thoracic Spine / Upper Back: Negative for thoracic spinal tenderness or paraspinal muscle tenderness Extremity normal to inspection General Extremety ED: Negative for edema or tenderness General Extremity: Negative for edema Neuro oriented x3, CN's II-XII intact bilaterally and no sensory deficits noted Sensorium / Orientation: alert Motor Exam: strength 5/5 throughout Psych mental status grossly normal Skin no rashes or lesions noted General Skin Exam: Negative for jaundice or pallor MDM MDM MDM Narrative Medical decision making narrative: Patient presenting with chest pain after a syncopal episode in which a team landed on his chest. He is not short of breath. His pain is in the sternum with a being hit him. He hit his head but does not have any concussion symptoms and he is neurologically intact so I do not believe he needs a CT of the brain. Patient does agree with this. He states he has a history of concussions and does not feel like he has 1. CBC and BMP are unremarkable. Electrolytes within normal limits. High-sensitivity troponin less than 3. EKG on my interpretation shows a normal sinus rhythm with a ventricular 95 bpm without sign of ischemic change or dysrhythmia. Chest x-ray on my interpretation shows no acute cardiopulmonary process and the radiologist does agree. Orthostatic vital signs are normal. Given patient's normal work-up I do believe he likely had a vagal episode. Patient does not appear to be dehydrated. Patient will follow up with his regular physician and return precautions were discussed. Impression: 1. syncope 2. Chest wall contusion 3. Closed head injury Lab Data Attestation: I reviewed the patient's lab results. Labs: Laboratory Results - last 24 hr 02/28/22 02/28/22 10:40 10:40 WBC 7.0 RBC 4.50 L Hgb 13.5 Hct 41.5 MCV 92.2 MCH 30.0 MCHC 32.5 RDW Std Deviation 42.6 RDW Coeff of Katie 12.6 Plt Count 325 MPV 9.7 Immature Gran % (Auto) 0.600 Neut % (Auto) 66.7 Lymph % (Auto) 21.7 [place] % (Auto) 8.8 Eos % (Auto) 1.9 Baso % (Auto) 0.3 Absolute Neuts (auto) 4.7 Absolute Lymphs (auto) 1.51 Nucleated RBC % 0 Sodium 139 Potassium 4.2 Chloride 106 Carbon Dioxide 26.0 Anion Gap 7 BUN 14 Creatinine 1.22 Estim Creat Clear Calc 78.44 Est GFR (MDRD) Af Amer 89 Est GFR (MDRD) Non-Af 73 BUN/Creatinine Ratio 11.5 Glucose 104 Calcium 9.0 Troponin I High Sens < 3 L Radiography Diagnostic Testing: Clinical Impression(s) from Imaging Studies Chest X-Ray 02/28/22 10:20 IMPRESSION: Nonacute portable x-ray examination of the chest. Electronically Signed: Xavier Mullins MD ([place]) at 11:03 EDT , Discharge Plan Triage Chief Complaint: Syncope ED Provider: Amish Leroy Dx/Rx/DC Orders Instructions: ED Chest Wall Contusion, ED Fainting, Vagal Reaction Prescriptions: No Action Invega Sustenna 156 mg/mL syringe 1 mg IM QMONTH RF: 0 trazodone 50 mg Tablet 50 mg PO QHS RF: 0 hydroxyzine pamoate [Vistaril] 50 mg Capsule 50 mg PO BID RF: 0 atomoxetine [Strattera] 25 mg Capsule 25 mg PO DAILY RF: 0 Vivitrol 380 mg Suspension,Extended Rel Recon 380 mg IM QMONTH RF: 0 Primary Care Provider: Care Physician,No Primary Referrals: Care Physician,No Primary [Primary Care Provider] - Disposition Disposition: Home, Self Care Discharge Date/Time: 02/28/22 12:14
[2022-02-28 10:46] LABS: Absolute Lymphocyte Count 1.51 X10^3/uL (0.83-4.51); Absolute Neutrophil Count 4.7 X10^3/uL (2.0-7.7); Basophil# 0.02 X10^3/uL; Basophil% 0.3 % (0-1); Eosinophil# 0.13 X10^3/uL; Eosinophils% 1.9 % (0-5); Hematocrit 41.5 % (40-54); Hemoglobin 13.5 g/dL (13.0-16.5); Lymphocyte # 1.51 X10^3/ul (0.83-4.51); Lymphocyte % 21.7 % (19-41); Mean Corp Hgb Conc 32.5 g/dL (32-36); Mean Corpuscular Volume 92.2 fL (80-94); Mean Platelet Vol. 9.7 fl (6.2-12.0); Monocyte# 0.61 X10^3/uL; Monocyte% 8.8 % (0-10); NRBC Flagged by Analyzer 0 % (0-5); Neutrophil # 4.65 X10^3/uL (2.7-7.7); Neutrophil % 66.7 % (47-70); Platelet Count 325 K/mm3 (150-450); RBC Distribution Width CV 12.6 % (11.6-14.6); RBC Distribution Width SD 42.6 fl (35.1-43.9)
[2022-02-28 11:04] LABS: Anion Gap 7 (5-15); BUN 14 mg/dL (7-18); BUN/Creat Ratio 11.5 RATIO (10-20); Chloride 106 mmol/L (98-107); Creatinine, Serum 1.22 mg/dL (0.70-1.30); EST Glomerular Filtration Rate 73 mL/min (>60); Est Glom Filt Rate - Afr Amer 89 mL/min (>60); Estimated Creatinine Clearance 78.44 ml/min; Glucose 104 mg/dL (74-106); Potassium 4.2 mmol/L (3.5-5.1); Sodium Level 139 mmol/L (136-145); Troponin-I HS (w/2H Reflex) < 3 pg/mL (3.0-78.0)
[2022-02-28 11:14] VITALS: BP 117/80; BP 120/73; BP 121/81; PULSE 100; PULSE 101; PULSE 88
--- NOTE | 2022-02-28 11:54 | CM.ED ---
Social Work Note Reason for Referral: No PCP SW met with pt. Pt confirms he has no PCP. SW provided pt with PCP list and Where to go and When to go handout. Susan Menjivar LEAD [address] SQL DEVELOPER, VIDEO RENTAL CLERK
[2022-02-28 12:13] VITALS: BP 129/88; PULSE 67; RESP 15; O2SAT 97
[2022-02-28 12:44] LABS: Reflex Troponin-HS? (from REC) Y
== END 2022-02-28 12:14 | disposition home or self-care (01) ==
PROVIDERS: Emergency Provider Student in an Organized Health Care Education/Training Program; Visit Provider Student in an Organized Health Care Education/Training Program
DX: S09.90XA Unspecified injury of head, initial encounter (principal); R55 Syncope and collapse; S20.20XA Contusion of thorax, unspecified, initial encounter; R07.9 Chest pain, unspecified; M89.8X9 Other specified disorders of bone, unspecified site; F17.210 Nicotine dependence, cigarettes, uncomplicated; W20.8XXA Other cause of strike by thrown, projected or falling object, initial encounter; Y99.0 Civilian activity done for income or pay; Y92.89 Other specified places as the place of occurrence of the external cause
CPT/HCPCS: 71045; 80048; 84484; 85025; 93005; 99284

== ENCOUNTER 2022-03-09 16:01 | Emergency (ER) | payer MEDICAID, SELFPAY ==
[2022-03-09 16:02] VITALS: BP 118/76; PULSE 109; RESP 16; TEMP 35.9; O2SAT 97; BMI 29.0
--- NOTE | 2022-03-09 16:16 | EDS_ITS ---
HPI History of Present Illness Chief Complaint: Abscess Narrative Narrative: Patient presents with right axilla abscess for about a week no fever or chills or systemic problems. He has no neck pain or distal arm or hand pain. [facility] Medical History Anxiety Asthma Bipolar disorder Carpal tunnel syndrome on right DVT (deep venous thrombosis) Intermittent explosive disorder in adult Mitral valve prolapse Polysubstance (excluding opioids) dependence PTSD (post-traumatic stress disorder) Schizophrenia Home Medications paliperidone palmitate [Invega Sustenna] 1 mg IM QMONTH 07/10/21 [History Last Taken Unknown] atomoxetine [Strattera] 25 mg PO DAILY 02/28/22 [History Last Taken Unknown] hydroxyzine pamoate [Vistaril] 50 mg PO BID 02/28/22 [History Last Taken Unknown] naltrexone microspheres [Vivitrol] 380 mg IM QMONTH 02/28/22 [History Last Taken Unknown] trazodone 50 mg PO QHS 02/28/22 [History Last Taken Unknown] clindamycin HCl 300 mg PO TID #60 cap 03/09/22 [Rx Last Taken Unknown] Allergy/AdvReac Type Severity Reaction Status Date / Time amoxicillin Allergy Anaphylaxis Verified 03/09/22 16:02 Penicillins Allergy Anaphylaxis Verified 03/09/22 16:02 Social History Smoking Status: Current every day smoker tobacco type: cigarettes ROS ROS ED ROS Narrative Past medical history: Reviewed Medications: Reviewed Social history: Noncontributory, has been a drug user but has been clean for about 8 months Review of systems: All systems negative except as indicated General: No fever Neck: No neck pain Cardiovascular: No chest pain Respiratory: No shortness of breath or cough Gastrointestinal: No abdominal pain, nausea vomiting or diarrhea Musculoskeletal: Right axilla abscess Skin: Abscess otherwise no other rash Neurological: No distal neuropathy Hematologic: No easy bleeding or easy bruising EXAM Physical Exam Narrative Exam Narrative: Physical exam General: Well nourished, Well developed, No Acute Distress Head: Normocephalic, Atraumatic ENT: Moist mucous membranes Neck: Supple, Nontender, No lymphadenopathy Cardiovascular: Normal distal pulses Respiratory: No distress Extremities: About a 2 cm abscess right axilla no obvious cellulitis. Skin: As above otherwise normal color, No rash Neurological: Alert, Normal Strength, Normal Sensation Psychological: Normal affect Const Vital Signs: 03/09/22 16:02 Temperature 96.7 F L Temperature Source Temporal Pulse Rate 109 H Respiratory Rate 16 Blood Pressure 118/76 Blood Pressure Mean 90 Pulse Ox 97 Oxygen Delivery Method Room Air MDM MDM MDM Narrative Medical decision making narrative: Abscess was drained, I will place the patient on antibiotics I will discharge him in stable condition. Procedures Other Procedures Procedure(s): Incision and drainage Verbal consent 1% lidocaine with epinephrine, about 3 mL were used I used a #11 blade and made a small incision, I ellipsed it. Pus was expectorated. I irrigated the wound. Patient tolerated procedure well Discharge Plan Triage Chief Complaint: Abscess ED Midlevel Provider: Cristiano Stephens ED Provider: Cristiano Adams Dx/Rx/DC Orders Clinical Impression: Abscess of right axilla, Armpit pain Instructions: ED Abscess Incision And Drainage Prescriptions: New clindamycin HCl 150 mg capsule 300 mg PO TID Qty: 60 RF: 0 No Action Invega Sustenna 156 mg/mL syringe 1 mg IM QMONTH RF: 0 trazodone 50 mg Tablet 50 mg PO QHS RF: 0 hydroxyzine pamoate [Vistaril] 50 mg Capsule 50 mg PO BID RF: 0 atomoxetine [Strattera] 25 mg Capsule 25 mg PO DAILY RF: 0 Vivitrol 380 mg Suspension,Extended Rel Recon 380 mg IM QMONTH RF: 0 Primary Care Provider: Care Physician,No Primary Referrals: Care Physician,No Primary [Primary Care Provider] - 2 Days Disposition Disposition: Home, Self Care
[2022-03-09] MEDS: Clindamycin HCl 150 MG Capsule 300 MG PO (16:31)
[2022-03-09] MEDS: Lidocaine 1% /Epi 1:100 (20ml) 20 ML Vial 3 ML INFILT (16:31)
[2022-03-09 16:40] VITALS: RESP 18
== END 2022-03-09 16:40 | disposition home or self-care (01) ==
LOC: ED 16:24
PROVIDERS: Emergency Provider Emergency Medicine; Visit Provider Emergency Medicine
DX: L02.411 Cutaneous abscess of right axilla (principal); F20.9 Schizophrenia, unspecified; F31.9 Bipolar disorder, unspecified; F17.210 Nicotine dependence, cigarettes, uncomplicated; F41.9 Anxiety disorder, unspecified; J45.909 Unspecified asthma, uncomplicated; Z86.718 Personal history of other venous thrombosis and embolism; F43.10 Post-traumatic stress disorder, unspecified; Z79.899 Other long term (current) drug therapy; I34.1 Nonrheumatic mitral (valve) prolapse
CPT/HCPCS: 10060; 99283

== ENCOUNTER 2022-07-28 20:52 | Emergency (ER) | payer MEDICAID, SELFPAY ==
[2022-07-28 20:54] VITALS: BP 115/87; PULSE 87; RESP 18; TEMP 36.4; O2SAT 96; BMI 30.7
--- NOTE | 2022-07-28 22:31 | CT_ITS ---
STUDY: CT ABDOMEN AND PELVIS WITH CONTRAST REASON FOR EXAM: Male, 32 years old. Abdominal pain. Left lower quadrant. Emesis and blood in stool. Crohn''s disease. TECHNIQUE: IV Contrast: IV 100mL [id number] Enteric contrast: None administered. Axial images obtained. Coronal and sagittal reformatted images provided. Individualized dose optimization techniques were used for this CT. COMPARISON: 04/26/2021 CT abdomen pelvis. FINDINGS: Partially visualized lower chest: Lung bases unremarkable. Liver: No concerning lesions. Gallbladder and biliary tree: No visible gallstones. No pericholecystic inflammation. No biliary ductal dilation. Pancreas: No pancreatic lesions or inflammation. Spleen: Normal size, no splenic lesions. Adrenal glands: No concerning masses. Kidneys and ureters: No hydronephrosis or renal stones. No concerning masses. No ureteral dilation. Bowel: Normal appendix. No obstruction or inflammation of the bowel. Urinary bladder: No stones or wall thickening. Reproductive:Normal size prostate. Vascular: No abdominal aortic aneurysm. Retroperitoneal and peritoneal spaces: No ascites or free air. No retroperitoneal lesions. Osseous: No acute osseous abnormality. Abdominal and pelvic wall: No concerning findings. CT/Abdomen/Pelvis W IV Cont ONLY IMPRESSION: No acute or concerning findings. No evidence of active Crohn''s disease or other acute pathology. Electronically Signed: Heriberto Geller MD at 0:51 EDT Reading Location ID and State: [facility] / [place] Tel , Service support ,
--- NOTE | 2022-07-28 22:36 | EDS_ITS ---
HPI HPI - GI History of Present Illness Chief Complaint: GI Bleed Narrative Narrative: 32-year-old male with history of GERD and Crohn's disease presenting with epigastric burning. He states this started after he ate and shorty Muhammad had red sauce in it. He states this would get him every time. He said he continued to eat and even after he noticed it and then started to vomit. He noticed some small amounts of red specks in his vomit. He states he also subsequently had some diarrhea and thought he saw some blood in his stool. He states that all of his symptoms are mostly resolved. He still has burning but is not throwing up anymore. Patient states that he was recently in rehab and he has not had follow-up for his Crohn's disease in some time. He does not take anything on a regular basis for this. He has not had a fever. He is not lighth eaded or dizzy. [facility] Medical History Anxiety Asthma Bipolar disorder Carpal tunnel syndrome on right DVT (deep venous thrombosis) Intermittent explosive disorder in adult Mitral valve prolapse Polysubstance (excluding opioids) dependence PTSD (post-traumatic stress disorder) Schizo affective schizophrenia Schizophrenia Home Medications atomoxetine 25 mg capsule (Strattera) 25 mg PO DAILY 02/28/22 [History Last Taken Unknown] hydroxyzine pamoate 50 mg capsule (Vistaril) 50 mg PO BID PRN Anxiety 02/28/22 [History Last Taken Unknown] naltrexone microspheres 380 mg intramuscular suspension,extended release (Vivitrol) 380 mg IM QMONTH 02/28/22 [History Last Taken Unknown] clindamycin HCl 150 mg capsule 300 mg PO TID #60 caps 03/09/22 [Rx Last Taken Unknown] cephalexin 500 mg capsule 500 mg PO BID 07/28/22 [History Last Taken Unknown] haloperidol decanoate 100 mg/mL intramuscular solution mg IM QMONTH 07/28/22 [History Last Taken Unknown] quetiapine 300 mg tablet (Seroquel) 300 mg PO QHS 07/28/22 [History Last Taken Unknown] ondansetron 4 mg disintegrating tablet 4 mg PO Q8H PRN nausea and vomiting #10 tabs 07/29/22 [Rx Last Taken Unknown] Allergy/AdvReac Type Severity Reaction Status Date / Time amoxicillin Allergy Anaphylaxis Verified 07/28/22 21:03 Penicillins Allergy Anaphylaxis Verified 07/28/22 21:03 Opioids - Morphine Analogues AdvReac Other Verified 07/28/22 21:03 Social History Smoking Status: Current every day smoker tobacco type: cigarettes EXAM Physical Exam Const Vital Signs: 07/28/22 20:54 07/28/22 22:52 07/29/22 00:00 Temperature 97.6 F L Temperature Source Temporal Pulse Rate 87 Respiratory Rate 18 17 18 Blood Pressure 115/87 H Blood Pressure Mean 96 Pulse Ox 96 Oxygen Delivery Method Room Air Room Air Room Air Positive well nourished General Appearance ED: NAD; Negative for pallor HEENT Reports moist mucous membranes Eyes PERRL and EOMs intact bilaterally General Eye ED: Negative for pale conjunctiva or scleral icterus Resp normal respiratory effort and clear to auscultation bilaterally Cardio regular rate and regular rhythm GI non-distended and no masses GI Narrative: Benign abdomen Neuro CN's II-XII intact bilaterally and moves all extremities Sensorium / Orientation: alert Psych mental status grossly normal Skin no wounds General Skin Exam: Negative for jaundice or pallor MDM MDM MDM Narrative Medical decision making narrative: Patient with history of Crohn's disease and GERD. He states he ate an [place] burger with red sauce on it which he believes that his nausea into motion. He is also red specks in his emesis but is not sure if this is blood or red sauce. He states that his nausea has resolved for the most part but he still mildly nauseous. Not vomiting anymore. He also states he saw blood in his stool. He had some diarrhea after he vomited a couple of times. He states that he has a history of Crohn's disease and this is not necessarily abnormal for him. He does not have any lightheadedness or dizziness. Patient states that since he is in recovery he does not want any narcotics. Blood work is obtained and is a slight leukocytosis 12.0. Hemoglobin hematocrit are at baseline. Renal function electrolytes are normal. LFTs are normal. Lipase within normal limits. Urinalysis negative. Patient still remains with normal vital signs. He is only describing is very small amount of blood that he saw in his stool and mucus. He is not hypotensive or tachycardic and does not have any symptoms of anemia. His hemoglobin is at baseline. I feel the patient is safe for discharge at this point. He requests of referral for GI and he was given Dr. Friend. Return precautions were discussed. Impression: 1. GI bleed stable 2. History of Crohn's disease 3. Nausea/vomiting Lab Data Attestation: I reviewed the patient's lab results. Labs: Laboratory Results - last 24 hr 07/28/22 07/28/22 07/28/22 21:05 21:05 22:00 WBC 12.0 H RBC 4.48 L Hgb 13.5 Hct 41.6 MCV 92.9 MCH 30.1 MCHC 32.5 RDW Std Deviation 44.2 H RDW Coeff of Katie 13.1 Plt Count 337 MPV 10.8 Immature Gran % (Auto) 0.400 Neut % (Auto) 70.7 H Lymph % (Auto) 20.2 [place] % (Auto) 7.5 Eos % (Auto) 0.8 Baso % (Auto) 0.4 Absolute Neuts (auto) 8.5 H Absolute Lymphs (auto) 2.42 Nucleated RBC % 0 Sodium 142 Potassium 3.8 Chloride 105 Carbon Dioxide 30.0 Anion Gap 7 BUN 14 Creatinine 1.22 Estim Creat Clear Calc 78.44 Est GFR (MDRD) Af Amer 88 Est GFR (MDRD) Non-Af 73 BUN/Creatinine Ratio 11.5 Glucose 89 Calcium 9.4 Total Bilirubin 0.40 AST 52 H ALT 51 Alkaline Phosphatase 75 Total Protein 7.6 Albumin 4.1 Globulin 3.5 Albumin/Globulin Ratio 1.2 Lipase 85 Urine Color Yellow Urine Clarity Clear Urine pH 7.0 Ur Specific [place] 1.010 Urine Protein Negative Urine Glucose (UA) Normal Urine Ketones Negative Urine Occult Blood Negative Urine Nitrite Negative Urine Bilirubin Negative Urine Urobilinogen Normal Ur Leukocyte Esterase Negative Urine RBC 0 SEEN Urine WBC 0 SEEN Ur Squamous Epith Cells 0 SEEN Urine Bacteria 0 SEEN Urine Mucus 0 SEEN Radiography Diagnostic Testing: Clinical Impression(s) from Imaging Studies Abdomen/Pelvis CT 07/28/22 22:31 IMPRESSION: No acute or concerning findings. No evidence of active Crohn''s disease or other acute pathology. Electronically Signed: Heriberto Geller MD at 0:51 EDT Reading Location ID and State: [facility] / [place] Tel , Service support , Discharge Plan Triage Chief Complaint: GI Bleed ED Provider: Amish Leroy Dx/Rx/DC Orders Instructions: Crohns Disease Lifestyle Changes, ED Lower GI Bleeding (Stable), ED Vomiting (Adult) Prescriptions: New ondansetron 4 mg tablet,disintegrating 4 mg PO Q8H PRN (Reason: nausea and vomiting) Qty: 10 0RF No Action hydroxyzine pamoate [Vistaril] 50 mg Capsule 50 mg PO BID PRN (Reason: Anxiety) atomoxetine [Strattera] 25 mg Capsule 25 mg PO DAILY Vivitrol 380 mg Suspension,Extended Rel Recon 380 mg IM QMONTH clindamycin HCl 150 mg capsule 300 mg PO TID Qty: 60 0RF haloperidol decanoate 100 mg/mL solution IM QMONTH cephalexin 500 mg capsule 500 mg PO BID Label Comments: TAKE 1 CAPSULE TWICE DAILY quetiapine [Seroquel] 300 mg Tablet 300 mg PO QHS Primary Care Provider: Care Physician,No Primary Referrals: Johnie Pepe, [Med Staff - Active Staff] - As soon as possible Care Physician,No Primary [Primary Care Provider] - Disposition Disposition: Home, Self Care
[2022-07-28 22:43] LABS: Bacteria 0 SEEN /hpf (None Seen); Mucous, Urine 0 SEEN /hpf (<or=2+); Red Blood Cells-Urine 0 SEEN /hpf (0-5); Squamous Epithelial Cells - UA 0 SEEN /hpf (0-5); White Blood Cells 0 SEEN /hpf (0-5)
[2022-07-28 22:47] LABS: Absolute Lymphocyte Count 2.42 X10^3/uL (0.83-4.51); Absolute Neutrophil Count 8.5 X10^3/uL (2.0-7.7); Basophil# 0.05 X10^3/uL; Basophil% 0.4 % (0-1); Eosinophils% 0.8 % (0-5); Hematocrit 41.6 % (40-54); Hemoglobin 13.5 g/dL (13.0-16.5); Lymphocyte # 2.42 X10^3/ul (0.83-4.51); Lymphocyte % 20.2 % (19-41); Mean Corp Hgb Conc 32.5 g/dL (32-36); Mean Corpuscular Hgb 30.1 pg (27.0-32.0); Mean Corpuscular Volume 92.9 fL (80-94); Mean Platelet Vol. 10.8 fl (6.2-12.0); Monocyte% 7.5 % (0-10); NRBC Flagged by Analyzer 0 % (0-5); Neutrophil # 8.48 X10^3/uL (2.7-7.7); Neutrophil % 70.7 % (47-70); Platelet Count 337 K/mm3 (150-450); RBC Distribution Width CV 13.1 % (11.6-14.6); RBC Distribution Width SD 44.2 fl (35.1-43.9); Red Blood Count 4.48 M/mm3 (4.6-6.2)
[2022-07-28] MEDS: Ondansetron 4 MG/2 ML Vial IV (22:51)
[2022-07-28 22:52] VITALS: RESP 17
[2022-07-28 23:28] LABS: BUN 14 mg/dL (7-18); Creatinine, Serum 1.22 mg/dL (0.70-1.30); Estimated Creatinine Clearance 78.44 ml/min; Glucose 89 mg/dL (74-106)
[2022-07-28 23:29] LABS: ALB/GLOB Ratio 1.2 RATIO (0.9-2.4); AST(SGOT) 52 U/L (15-37); Alanine Aminotransfer ALT/SGPT 51 U/L (16-61); Albumin, Serum 4.1 g/dL (3.2-5.0); Alkaline Phosphatase 75 U/L (45-117); Anion Gap 7 (5-15); BUN/Creat Ratio 11.5 RATIO (10-20); Calcium,Total 9.4 mg/dL (8.5-10.1); Chloride 105 mmol/L (98-107); EST Glomerular Filtration Rate 73 mL/min (>60); Est Glom Filt Rate - Afr Amer 88 mL/min (>60); Globulin 3.5 g/dL (2.2-4.2); Lipase 85 U/L (73-393); Potassium 3.8 mmol/L (3.5-5.1); Protein, Total 7.6 g/dL (6.4-8.2); Sodium Level 142 mmol/L (136-145)
[2022-07-28 23:39] LABS: Color, Urine Yellow (Yellow); Glucose, Dipstick Normal (Normal); Ketone-Dipstick Negative (Negative); Leukocyte Esterase-Dipstick Negative /ul (Negative); Nitrite-Dipstick Negative (Negative); Occult Blood-Urine Negative /ul (Negative); Protein-Dipstick Negative (Negative); Urine Bilirubin Dipstick Negative (Negative); Urine Clarity Clear (Clear); Urine Urobilinogen Normal (Normal)
[2022-07-29] VITALS: RESP 18
[2022-07-29 01:00] VITALS: BP 123/74; PULSE 71; RESP 19; O2SAT 98
== END 2022-07-29 01:18 | disposition home or self-care (01) ==
PROVIDERS: Emergency Provider Student in an Organized Health Care Education/Training Program; Visit Provider Student in an Organized Health Care Education/Training Program
DX: K92.2 Gastrointestinal hemorrhage, unspecified (principal); F20.9 Schizophrenia, unspecified; F31.9 Bipolar disorder, unspecified; K50.90 Crohn's disease, unspecified, without complications; R11.2 Nausea with vomiting, unspecified; F17.210 Nicotine dependence, cigarettes, uncomplicated; Z86.718 Personal history of other venous thrombosis and embolism
CPT/HCPCS: 74177; 80053; 81001; 83690; 85025; 99283; Q9967; J2405

== ENCOUNTER 2022-10-02 12:50 | Emergency (ER) | payer MEDICAID, SELFPAY ==
[2022-10-02 12:51] VITALS: BP 103/62; PULSE 120; RESP 18; TEMP 35.9; O2SAT 100; BMI 25.8
--- NOTE | 2022-10-02 13:38 | ED.VIS.DENTA ---
HPI History of Present Illness Chief Complaint: Dental Informant: patient Onset/Context/Timing Onset: Days (4) Narrative Narrative: Dental pain that started on the left side now the right and both sides. For the past 2 days, he had subjective fevers yesterday, he has felt foggy in his head, his jaw is hurting worse, he denies any facial swelling or bleeding or discharge that he knows of from his teeth, but he checked his heart rate and it is fast, he has had dyspnea when he walks up flights of stairs only, chronic cough that is unchanged, but he is afraid that I am getting septic from the dental infection/pain. He admits to having mitral valve prolapse and being an IV drug abuser, the last time he did IV drugs was in August last month. He states when he was arrested and sent to [facility] yesterday, they happened to test him for influenza & COVID and he was negative for both. [facility] Medical History Anxiety Asthma Bipolar disorder Carpal tunnel syndrome on right DVT (deep venous thrombosis) Intermittent explosive disorder in adult Mitral valve prolapse Polysubstance (excluding opioids) dependence PTSD (post-traumatic stress disorder) Schizo affective schizophrenia Schizophrenia Home Medications atomoxetine 25 mg capsule (Strattera) 25 mg PO DAILY 02/28/22 [History Last Taken Unknown] hydroxyzine pamoate 50 mg capsule (Vistaril) 50 mg PO BID PRN Anxiety 02/28/22 [History Last Taken Unknown] naltrexone microspheres 380 mg intramuscular suspension,extended release (Vivitrol) 380 mg IM QMONTH 02/28/22 [History Last Taken Unknown] clindamycin HCl 150 mg capsule 300 mg PO TID #60 caps 03/09/22 [Rx Last Taken Unknown] cephalexin 500 mg capsule 500 mg PO BID 07/28/22 [History Last Taken Unknown] haloperidol decanoate 100 mg/mL intramuscular solution mg IM QMONTH 07/28/22 [History Last Taken Unknown] quetiapine 300 mg tablet (Seroquel) 300 mg PO QHS 07/28/22 [History Last Taken Unknown] ondansetron 4 mg disintegrating tablet 4 mg PO Q8H PRN nausea and vomiting #10 tabs 07/29/22 [Rx Last Taken Unknown] clindamycin HCl 150 mg capsule 300 mg PO 4X/DAY #80 CAPSULES 10/02/22 [Rx Last Taken Unknown] Allergy/AdvReac Type Severity Reaction Status Date / Time amoxicillin Allergy Anaphylaxis Verified 10/02/22 12:53 Penicillins Allergy Anaphylaxis Verified 10/02/22 12:53 Opioids - Morphine Analogues AdvReac Other Verified 10/02/22 12:53 Social History Smoking Status: Current every day smoker tobacco type: cigarettes ROS ROS ED Constitutional Constitutional ED: Reports fever(s), malaise and subjective; Denies chills Eyes Eyes: Denies change in vision or double vision ENT ENT ED: Reports dental pain; Denies sinus pain or throat swelling Cardiovascular Cardiovascular: Denies chest pain or palpitations Respiratory/Chest Respiratory/Chest: Reports cough and dyspnea on exertion; Denies sputum Gastrointestinal Gastrointestinal: Denies abdominal pain, diarrhea, nausea or vomiting Genitourinary Genitourinary ED: Denies dysuria or hematuria Musculoskeletal Musculoskeletal: Reports myalgias; Denies back pain or neck pain Integumentary Denies abscess or rash Neurologic Neurologic: Denies headache(s), paresthesias or weakness Psychiatric Psychiatric: Denies anxiety or suicidal thoughts EXAM Physical Exam Const Vital Signs: 10/02/22 12:51 Temperature 96.7 F L Temperature Source Temporal Pulse Rate 120 H Respiratory Rate 18 Blood Pressure 103/62 Blood Pressure Mean 75 Pulse Ox 100 Oxygen Delivery Method Room Air Positive well nourished and well developed Constitutional Narrative: Well-appearing using phone prior to evaluation. Mild tachycardia less than the 120 at triage. Conversive in full sentences, normal voice, no sublingual edema, normal tongue with no elevation. No stridor. General Appearance ED: well developed and NAD HEENT Reports moist mucous membranes HEENT Narrative: No trismus. Multiple decayed teeth, the only one without a filling already and it is left mandibular first molar. Multiple mildly tender molars. No signs of gingivitis, no bleeding, no discharge, no associated abscess anywhere. No external facial swelling. No nasal discharge. normocephalic and atraumatic Face and Sinus: sinuses nontender Throat: posterior oropharynx normal Eyes PERRL and EOMs intact bilaterally Neck no lymphadenopathy and supple Resp normal respiratory effort and clear to auscultation bilaterally Effort and Inspection: able to speak in complete sentences Cardio regular rate, regular rhythm and no murmurs Rate: tachycardic GI non-tender and non-distended Auscultation: normoactive bowel sounds Palpation: soft Back/Spine no CVA tenderness General Back: other FROM Extremity normal to inspection General Extremety ED: Negative for edema, pulses abnormal or tenderness General Extremity: Negative for edema or pulses abnormal Neuro oriented x3 and CN's II-XII intact bilaterally Sensorium / Orientation: alert Gait (Neuro): normal gait Motor Exam: strength 5/5 throughout Psych mental status grossly normal and thought process normal Skin no rashes or lesions noted and no wounds MDM MDM MDM Narrative Medical decision making narrative: With the patient have a resting tachycardia, dyspnea on exertion, history of IV drug use, and subjective fevers, I performed more of a work-up, to rule out pulmonary embolus, pneumonia, pneumothorax, and/or sepsis/bacteremia. 2 view chest x-ray is normal. EKG is normal. D-dimer is normal, his white blood count is normal. The rest of his tests are normal and I am comfortable discharging him home on clindamycin which was started here and he is comfortable with that too. I did do blood cultures to rule out bacteremia. Lab Data Attestation: I reviewed the patient's lab results. Labs: Laboratory Results - last 24 hr 10/02/22 10/02/22 10/02/22 13:55 13:55 13:55 WBC 8.7 RBC 5.12 Hgb 15.8 Hct 47.6 MCV 93.0 MCH 30.9 MCHC 33.2 RDW Std Deviation 42.5 RDW Coeff of Katie 12.2 Plt Count 357 MPV 9.3 Immature Gran % (Auto) 0.200 Neut % (Auto) 75.9 H Lymph % (Auto) 16.4 L [place] % (Auto) 6.9 Eos % (Auto) 0.5 Baso % (Auto) 0.1 Absolute Neuts (auto) 6.6 Absolute Lymphs (auto) 1.42 Nucleated RBC % 0 D-Dimer Quant (PE/DVT) 0.28 Sodium 138 Potassium 3.9 Chloride 103 Carbon Dioxide 29.0 Anion Gap 6 BUN 12 Creatinine 1.02 Estim Creat Clear Calc 93.82 Est GFR (MDRD) Af Amer 108 Est GFR (MDRD) Non-Af 90 BUN/Creatinine Ratio 11.8 Glucose 100 Calcium 9.6 Radiography Diagnostic Testing: Clinical Impression(s) from Imaging Studies Chest X-Ray 10/02/22 13:55 IMPRESSION: Normal x-ray examination of the chest. Electronically Signed: Ap Schmid MD at 14:36 EST Reading Location ID and State: [address] [place] [address] , Service support , Rhythm Strip Rhythm Strip: Sinus Tach Rate: 120 Ectopy: None EKG Initial EKG: Attestation: I personally reviewed and interpreted this EKG as follows: Interpretation: No Acute Injury Pattern and Sinus Tachycardia Discharge Plan Triage Chief Complaint: Dental Other Complaint: General Illness ED Provider: José Lujan Dx/Rx/DC Orders Clinical Impression: Pain due to dental caries, MACKAY (dyspnea on exertion), Tachycardia, History of intravenous drug use in remission Instructions: ED Dental Pain Prescriptions: New clindamycin HCl 150 mg capsule 300 mg PO 4X/DAY Qty: 80 0RF No Action hydroxyzine pamoate [Vistaril] 50 mg Capsule 50 mg PO BID PRN (Reason: Anxiety) atomoxetine [Strattera] 25 mg Capsule 25 mg PO DAILY Vivitrol 380 mg Suspension,Extended Rel Recon 380 mg IM QMONTH clindamycin HCl 150 mg capsule 300 mg PO TID Qty: 60 0RF haloperidol decanoate 100 mg/mL solution IM QMONTH cephalexin 500 mg capsule 500 mg PO BID Label Comments: TAKE 1 CAPSULE TWICE DAILY quetiapine [Seroquel] 300 mg Tablet 300 mg PO QHS ondansetron 4 mg tablet,disintegrating 4 mg PO Q8H PRN (Reason: nausea and vomiting) Qty: 10 0RF Primary Care Provider: Care Physician,No Primary Referrals: Care Physician,No Primary [Primary Care Provider] - Dentist,Your [STAFF PHYSICIAN] - As soon as possible (see attached dental resource sheet if needed) Disposition Disposition: Home, Self Care
--- NOTE | 2022-10-02 13:55 | RAD_ITS ---
STUDY: X-RAY CHEST REASON FOR EXAM: Male, 32 years old. cough, MACKAY TECHNIQUE: PA and lateral views of the chest. COMPARISON: FEBRUARY 28, 2022 FINDINGS: The lungs are clear and expanded. There is no demonstrated pleural abnormality. Normal size heart. Normal mediastinum and nixon. Normal visualized pulmonary arteries. Normal visualized aortic arch and descending thoracic aorta. Normal visualized thoracic spine. Normal visualized ribs, clavicles, and shoulders. There is no demonstrated abnormality of the visualized soft tissue structures of the upper abdomen. RAD/Chest PA and Lateral IMPRESSION: Normal x-ray examination of the chest. Electronically Signed: Ap Schmid MD at 14:36 EST ,
[2022-10-02 14:09] LABS: Absolute Lymphocyte Count 1.42 X10^3/uL (0.83-4.51); Absolute Neutrophil Count 6.6 X10^3/uL (2.0-7.7); Basophil# 0.01 X10^3/uL; Basophil% 0.1 % (0-1); Eosinophil# 0.04 X10^3/uL; Eosinophils% 0.5 % (0-5); Hematocrit 47.6 % (40-54); Hemoglobin 15.8 g/dL (13.0-16.5); Lymphocyte # 1.42 X10^3/ul (0.83-4.51); Lymphocyte % 16.4 % (19-41); Mean Corp Hgb Conc 33.2 g/dL (32-36); Mean Corpuscular Hgb 30.9 pg (27.0-32.0); Mean Platelet Vol. 9.3 fl (6.2-12.0); Monocyte% 6.9 % (0-10); NRBC Flagged by Analyzer 0 % (0-5); Neutrophil # 6.58 X10^3/uL (2.7-7.7); Neutrophil % 75.9 % (47-70); Platelet Count 357 K/mm3 (150-450); RBC Distribution Width CV 12.2 % (11.6-14.6); RBC Distribution Width SD 42.5 fl (35.1-43.9); Red Blood Count 5.12 M/mm3 (4.6-6.2); White Blood Count 8.7 K/mm3 (4.4-11.0)
[2022-10-02 14:21] LABS: D-Dimer Quantitative (DVT/PE) 0.28 FEU/ug/m (0.27-0.49)
[2022-10-02 14:26] LABS: Anion Gap 6 (5-15); BUN 12 mg/dL (7-18); BUN/Creat Ratio 11.8 RATIO (10-20); Calcium,Total 9.6 mg/dL (8.5-10.1); Chloride 103 mmol/L (98-107); Creatinine, Serum 1.02 mg/dL (0.70-1.30); EST Glomerular Filtration Rate 90 mL/min (>60); Est Glom Filt Rate - Afr Amer 108 mL/min (>60); Estimated Creatinine Clearance 93.82 ml/min; Glucose 100 mg/dL (74-106); Potassium 3.9 mmol/L (3.5-5.1); Sodium Level 138 mmol/L (136-145)
[2022-10-02] MEDS: Clindamycin HCl 150 MG Capsule 300 MG PO (14:33)
[2022-10-02 15:00] VITALS: BP 128/76; PULSE 84; RESP 16; O2SAT 98
[2022-10-02 15:40] VITALS: BP 122/84; PULSE 75; RESP 16; TEMP 37.1; O2SAT 97
== END 2022-10-02 15:54 | disposition home or self-care (01) ==
PROVIDERS: Emergency Provider Emergency Medicine; Visit Provider Emergency Medicine
DX: K02.9 Dental caries, unspecified (principal); R06.09 Other forms of dyspnea; R00.0 Tachycardia, unspecified; F17.210 Nicotine dependence, cigarettes, uncomplicated; Z86.718 Personal history of other venous thrombosis and embolism; Z79.899 Other long term (current) drug therapy
CPT/HCPCS: 71046; 80048; 85025; 85379; 87040; 93005; 99284

== ENCOUNTER 2022-10-16 14:07 | Emergency (ER) | payer MEDICAID, SELFPAY ==
[2022-10-16 14:08] VITALS: BP 133/90; PULSE 78; RESP 14; TEMP 36.3; O2SAT 98; BMI 25.9
--- NOTE | 2022-10-16 14:20 | ED.VIS.DENTA ---
HPI History of Present Illness Chief Complaint: Dental Detail of Chief Complaint: Dental pain and swelling Informant: patient Onset/Context/Timing Onset: Days Context: Sudden Onset Timing: Continuous Quality: Pain Location: Tooth #30 Current Severity: Mild Maximum Severity: Moderate Worsened by: Cold liquids Relieved by: NSAIDs and Topicals Associated Symptoms Assocated Symptom - Dental: jaw swelling and cold sensitivity; Negative for fever, face swelling or hot sensitivity Narrative Narrative: Patient is a 32-year-old male states he was seen here 1 to 2 weeks ago. There is no record that he was seen 1 to 2 weeks ago for dental pathology. He discontinued the clindamycin he was prescribed. He resumed taking the clindamycin 2 days ago. He does have history of heart murmur due to mitral valve prolapse. He denies fever, chills night sweats. He denies difficulty opening or closing his mouth completely. He denies change in voice. He denies drooling. He denies facial swelling. He denies facial redness. He is on no immunosuppressive meds. Prior similar symptoms: Yes Recent Illness/Hospitalization: Yes [facility] Medical History Anxiety Asthma Bipolar disorder Carpal tunnel syndrome on right DVT (deep venous thrombosis) Intermittent explosive disorder in adult Mitral valve prolapse Polysubstance (excluding opioids) dependence PTSD (post-traumatic stress disorder) Schizo affective schizophrenia Schizophrenia Home Medications atomoxetine 25 mg capsule (Strattera) 25 mg PO DAILY 02/28/22 [History Last Taken Unknown] hydroxyzine pamoate 50 mg capsule (Vistaril) 50 mg PO BID PRN Anxiety 02/28/22 [History Last Taken Unknown] naltrexone microspheres 380 mg intramuscular suspension,extended release (Vivitrol) 380 mg IM QMONTH 02/28/22 [History Last Taken Unknown] clindamycin HCl 150 mg capsule 300 mg PO TID #60 caps 03/09/22 [Rx Last Taken Unknown] cephalexin 500 mg capsule 500 mg PO BID 07/28/22 [History Last Taken Unknown] haloperidol decanoate 100 mg/mL intramuscular solution 100 mg IM QMONTH 07/28/22 [History Last Taken Unknown] quetiapine 300 mg tablet (Seroquel) 300 mg PO QHS 07/28/22 [History Last Taken Unknown] ondansetron 4 mg disintegrating tablet 4 mg PO Q8H PRN nausea and vomiting #10 tabs 07/29/22 [Rx Last Taken Unknown] clindamycin HCl 150 mg capsule 300 mg PO 4X/DAY #80 CAPSULES 10/02/22 [Rx Last Taken Unknown] hydrocodone-acetaminophen 5-325mg 5mg-325mg 1 tab PO Q6H PRN PRN Pain 3 days #10 TABLETS 10/16/22 [Rx Last Taken Unknown] Allergy/AdvReac Type Severity Reaction Status Date / Time amoxicillin Allergy Anaphylaxis Verified 10/16/22 14:08 Penicillins Allergy Anaphylaxis Verified 10/16/22 14:08 Social History (Updated 10/16/22 @ 14:[address] Justen Crooks MD) household members: significant other Smoking Status: Current every day smoker tobacco type: cigarettes alcohol intake: current ROS ROS ED Constitutional Constitutional ED: Denies chills, fever(s), subjective, sweats or weight loss Eyes Eyes: Denies blurry vision or change in vision ENT ENT ED: Reports other Details: Per HPI narrative ; Denies ear pain, rhinorrhea or sore throat Cardiovascular Cardiovascular: Reports other Details: History of heart murmur due to mitral valve prolapse ; Denies chest pain or palpitations Respiratory/Chest Respiratory/Chest: Denies cough, dyspnea or dyspnea on exertion Gastrointestinal Gastrointestinal: Denies nausea or vomiting Hematologic/Lymphatic Hematologic/Lymphatic: Denies easy bleeding or easy bruising Allergic/Immunologic Allergic/Immunologic ED: Reports mouth swelling; Denies tongue swelling or urticaria EXAM Physical Exam Const Vital Signs: 10/16/22 14:08 Temperature 97.3 F L Temperature Source Temporal Pulse Rate 78 Respiratory Rate 14 Blood Pressure 133/90 H Blood Pressure Mean 104 Pulse Ox 98 Oxygen Delivery Method Room Air Positive well nourished, well developed and unkempt Constitutional Narrative: Patient appears slightly uncomfortable. He does not appear ill or toxic. General Appearance ED: unkempt and well developed HEENT HEENT Narrative: Head is atraumatic normocephalic. Ears normal. Nares patent. On the lingular side of the jaw right side patient has area of swelling and fluctuance. There is no trismus. There is no evidence of Ludewig's angina. Face and Sinus: sinuses nontender Mouth ED: Yes oral and palatal mucosa normal, Yes lips normal, Yes tongue normal, Yes salivary gland normal and No mouth trauma Mouth: oral and palatal mucosa normal, lips normal, tongue normal, salivary gland normal and No mouth trauma Teeth and Gingiva: abnormal tooth and associated gingiva, caries, gingiva abnormal, poor dentition and teeth discoloration Throat: posterior oropharynx normal Eyes PERRL and EOMs intact bilaterally General Eye ED: Negative for pale conjunctiva or scleral icterus Neck no lymphadenopathy, supple and no JVD Neck Narrative: Trachea is midline. There is no inspiratory or expiratory stridor. Lymph Lymphatic: no lymphadenopathy noted Resp normal respiratory effort, no retractions and clear to auscultation bilaterally Cardio regular rate, regular rhythm, S1 normal heart sound, S2 normal heart sound and no murmurs Neuro oriented x3, CN's II-XII intact bilaterally and moves all extremities Psych mental status grossly normal Appearance: unkempt Skin no rashes or lesions noted and no wounds MDM MDM MDM Narrative Medical decision making narrative: Patient has evidence of periodontal abscess. The abscess is amenable to incision and drainage. Patient was informed that his pain would diminish and he will get better quickly if this is incised and drained. Patient was informed numbing him would cause more discomfort than just simply poking the area with an 11 blade. Patient was instructed to continue taking the clindamycin. He was prescribed oral analgesics for his pain and given dental sheet. He was informed that his pain will not be alleviated until he is seen by a dentist since not only does he have an infection but also has pulpitis. Since patient has no systemic symptoms and is not febrile laboratory work was not obtained. Procedures Other Procedures Procedure(s): Incision and drainage of periodontal abscess proximity of tooth #30 with 11 blade. There was free flow of purulent material. Suspect 1+ cc. Discharge Plan Triage Chief Complaint: Dental ED Provider: Justen Crooks Dx/Rx/DC Orders Clinical Impression: Acute periodontal abscess, Dental caries extending into pulp, Hx of mitral valve prolapse, Symptomatic reversible pulpitis Instructions: ED Dental Abscess Prescriptions: New hydrocodone-acetaminophen [hydrocodone-acetaminophen] 5-325 mg tablet 1 tab PO Q6H PRN PRN (Reason: Pain) 3 Days Qty: 10 0RF No Action hydroxyzine pamoate [Vistaril] 50 mg Capsule 50 mg PO BID PRN (Reason: Anxiety) atomoxetine [Strattera] 25 mg Capsule 25 mg PO DAILY Vivitrol 380 mg Suspension,Extended Rel Recon 380 mg IM QMONTH clindamycin HCl 150 mg capsule 300 mg PO TID Qty: 60 0RF haloperidol decanoate 100 mg/mL solution 100 mg IM QMONTH cephalexin 500 mg capsule 500 mg PO BID Label Comments: TAKE 1 CAPSULE TWICE DAILY quetiapine [Seroquel] 300 mg Tablet 300 mg PO QHS ondansetron 4 mg tablet,disintegrating 4 mg PO Q8H PRN (Reason: nausea and vomiting) Qty: 10 0RF clindamycin HCl 150 mg capsule 300 mg PO 4X/DAY Qty: 80 0RF Primary Care Provider: Care Physician,No Primary Referrals: Care Physician,No Primary [Primary Care Provider] - Dentist,Your [STAFF PHYSICIAN] - As soon as possible Activity Restrictions/Additional Instructions: 1. Take clindamycin until gone 2. Take hydrocodone as prescribed for pain. 3. The only person who can alleviate your pain is a dentist. Recommend you contact dentist on the list you were given. This is especially important since you have history of mitral valve prolapse. Disposition Disposition: Home, Self Care
== END 2022-10-16 14:53 | disposition home or self-care (01) ==
LOC: ED 14:37
PROVIDERS: Emergency Provider Emergency Medicine; Visit Provider Emergency Medicine
DX: K05.219 Aggressive periodontitis, localized, unspecified severity (principal); F25.9 Schizoaffective disorder, unspecified; F31.9 Bipolar disorder, unspecified; K02.9 Dental caries, unspecified; K04.01 Reversible pulpitis; F17.210 Nicotine dependence, cigarettes, uncomplicated; I34.1 Nonrheumatic mitral (valve) prolapse
CPT/HCPCS: 10060; 99282

== ENCOUNTER 2022-12-14 22:59 | Emergency (ER) | payer MEDICAID, SELFPAY ==
[2022-12-14 23:00] VITALS: BP 139/83; PULSE 95; RESP 12; TEMP 36.6; O2SAT 98; BMI 27.5
--- NOTE | 2022-12-14 23:18 | EDS_ITS ---
HPI History of Present Illness Chief Complaint: Chest Pain Narrative Narrative: Patient is a 32-year-old male who states that he does marijuana and methamphetamines most days of the week. He states that he smoked both marijuana and methamphetamine this evening. He states that after doing so he then developed a chest discomfort and it was persisting for over 30 minutes and he was concerned that this could be cardiac. He states that he does have a father who had a heart attack in his late 30s which is why he is concerned that this could be cardiac in nature. He denies any other illicit ingestion and he denies any recent surgery or travel. However with his chest discomfort and concern for cardiovascular event he presents for evaluation [facility] Medical History Anxiety Asthma Bipolar disorder Carpal tunnel syndrome on right DVT (deep venous thrombosis) Intermittent explosive disorder in adult Mitral valve prolapse Polysubstance (excluding opioids) dependence PTSD (post-traumatic stress disorder) Schizo affective schizophrenia Schizophrenia Home Medications atomoxetine 25 mg capsule (Strattera) 25 mg PO DAILY 02/28/22 [History Last Taken Unknown] hydroxyzine pamoate 50 mg capsule (Vistaril) 50 mg PO BID PRN Anxiety 02/28/22 [History Last Taken Unknown] naltrexone microspheres 380 mg intramuscular suspension,extended release (Vivitrol) 380 mg IM QMONTH 02/28/22 [History Last Taken Unknown] clindamycin HCl 150 mg capsule 300 mg PO TID #60 caps 03/09/22 [Rx Last Taken Unknown] cephalexin 500 mg capsule 500 mg PO BID 07/28/22 [History Last Taken Unknown] haloperidol decanoate 100 mg/mL intramuscular solution 100 mg IM QMONTH 07/28/22 [History Last Taken Unknown] quetiapine 300 mg tablet (Seroquel) 300 mg PO QHS 07/28/22 [History Last Taken Unknown] ondansetron 4 mg disintegrating tablet 4 mg PO Q8H PRN nausea and vomiting #10 tabs 07/29/22 [Rx Last Taken Unknown] clindamycin HCl 150 mg capsule 300 mg PO 4X/DAY #80 CAPSULES 10/02/22 [Rx Last Taken Unknown] hydrocodone-acetaminophen 5-325mg 5mg-325mg 1 tab PO Q6H PRN PRN Pain 3 days #10 TABLETS 10/16/22 [Rx Last Taken Unknown] Allergy/AdvReac Type Severity Reaction Status Date / Time amoxicillin Allergy Anaphylaxis Verified 10/16/22 14:08 Penicillins Allergy Anaphylaxis Verified 10/16/22 14:08 Social History (Updated 10/16/22 @ 14:[address] Justen Crooks MD) household members: significant other Smoking Status: Current every day smoker tobacco type: cigarettes alcohol intake: current ROS ROS ED Constitutional Constitutional ED: Denies chills or fever(s) ENT ENT ED: Denies sore throat Cardiovascular Cardiovascular: Reports chest pain; Denies palpitations or racing heartbeat Respiratory/Chest Respiratory/Chest: Denies cough or dyspnea Gastrointestinal Gastrointestinal: Denies abdominal pain, diarrhea, nausea or vomiting Genitourinary Genitourinary ED: Denies dysuria Musculoskeletal Musculoskeletal: Denies myalgias Integumentary Denies rash Neurologic Neurologic: Denies headache(s) Hematologic/Lymphatic Hematologic/Lymphatic: Denies easy bleeding or easy bruising EXAM Physical Exam Const Vital Signs: 12/14/22 23:00 Temperature 97.8 F Temperature Source Temporal Pulse Rate 95 Respiratory Rate 12 Blood Pressure 139/83 H Blood Pressure Mean 101 Pulse Ox 98 Oxygen Delivery Method Room Air Positive well nourished and well developed General Appearance ED: well developed HEENT Reports moist mucous membranes Eyes PERRL and EOMs intact bilaterally General Eye ED: Negative for scleral icterus Neck supple and no JVD Neck Narrative: Carotid pulses are equal and symmetric Chest Wall palpation of chest normal Chest Narrative: No bony deformity or crepitus noted Resp normal respiratory effort and clear to auscultation bilaterally Cardio regular rate and regular rhythm Rate: other Other Details: Radial pulses are plus 2 out of 4 bilaterally are equal and symmetric GI normal to inspection, nondistended, normoactive bowel sounds, non-tender, non- distended and no masses GI Narrative: No voluntary guarding or rigidity no pulsatile mass Auscultation: normoactive bowel sounds Palpation: soft Extremity normal to inspection Extremity Narrative: No asymmetric edema no pitting edema negative Homans' sign bilaterally Neuro oriented x3 and CN's II-XII intact bilaterally Sensorium / Orientation: alert Psych Psych Narrative: Patient has a depressed/flat affect Skin no rashes or lesions noted MDM MDM MDM Narrative Medical decision making narrative: Patient presented to the ER slightly hypertensive but otherwise with stable vital. He is low risk for cardiovascular disease but as he admits to doing illicit drugs there is concern that he may have inadvertently used cocaine leading to coronary vasoconstriction and symptoms. He also has a remote history of DVT and so concerned that he possibly has developed a PE or has some type of underlying infectious process such as pneumonia or spontaneous pneumothorax is possible. A basic work-up was obtained. Labs revealed a troponin of 3 initially with no change to the delta going against active heart disease. His D-dimer is also negative going against a possible PE as a cause of his symptoms. On reevaluation the patient is resting comfortably and reports that the pain has improved. Therefore at this time as work-up does not show obvious signs of infection or pneumothorax or signs of PE or cardiac damage as the cause I do not feel there is need to observe the patient in the hospital any further and is otherwise safe for discharge History & Record Review Discussion w/independent historian: EMS personnel and Patient Lab Data Attestation: I reviewed the patient's lab results. Labs: Laboratory Results - last 24 hr 12/14/22 12/14/22 12/14/22 23:22 23:22 23:22 WBC 8.1 RBC 4.75 Hgb 14.4 Hct 44.3 MCV 93.3 MCH 30.3 MCHC 32.5 RDW Std Deviation 45.0 H RDW Coeff of Katie 13.2 Plt Count 371 MPV 10.2 Immature Gran % (Auto) 0.700 Neut % (Auto) 47.7 Lymph % (Auto) 36.2 [place] % (Auto) 9.4 Eos % (Auto) 5.5 H Baso % (Auto) 0.5 Absolute Neuts (auto) 3.8 Absolute Lymphs (auto) 2.92 Nucleated RBC % 0 D-Dimer Quant (PE/DVT) 0.42 Sodium 139 Potassium 3.9 Chloride 100 Carbon Dioxide 31.0 Anion Gap 8 BUN 17 Creatinine 1.11 Estim Creat Clear Calc 86.22 Est GFR (MDRD) Af Amer 98 Est GFR (MDRD) Non-Af 81 BUN/Creatinine Ratio 15.3 Glucose 107 H Calcium 9.6 Magnesium 2.2 Troponin I High Sens 3 Urine Opiates Screen Urine Methadone Screen Ur Barbiturates Screen Ur Phencyclidine Scrn Ur Amphetamines Screen MDMA (Ecstasy) Screen U Benzodiazepines Scrn Urine Cocaine Screen U Cannabinoids Screen Ur Drug Screen Comment 12/14/22 12/15/22 23:35 01:20 WBC RBC Hgb Hct MCV MCH MCHC RDW Std Deviation RDW Coeff of Katie Plt Count MPV Immature Gran % (Auto) Neut % (Auto) Lymph % (Auto) [place] % (Auto) Eos % (Auto) Baso % (Auto) Absolute Neuts (auto) Absolute Lymphs (auto) Nucleated RBC % D-Dimer Quant (PE/DVT) Sodium Potassium Chloride Carbon Dioxide Anion Gap BUN Creatinine Estim Creat Clear Calc Est GFR (MDRD) Af Amer Est GFR (MDRD) Non-Af BUN/Creatinine Ratio Glucose Calcium Magnesium Troponin I High Sens 3 Urine Opiates Screen NEGATIVE Urine Methadone Screen NEGATIVE Ur Barbiturates Screen NEGATIVE Ur Phencyclidine Scrn NEGATIVE Ur Amphetamines Screen POSITIVE H MDMA (Ecstasy) Screen POSITIVE H U Benzodiazepines Scrn NEGATIVE Urine Cocaine Screen NEGATIVE U Cannabinoids Screen POSITIVE H Ur Drug Screen Comment Radiography Diagnostic Testing: Clinical Impression(s) from Imaging Studies Chest X-Ray 12/14/22 23:45 IMPRESSION: No radiographic evidence of acute cardiopulmonary disease. Electronically Signed: Lionel Mendoza MD at 0:12 EST , Chest x-ray as interpreted by the emergency medicine physician reveals no acute infiltrate pneumothorax or pleural effusion Discharge Plan Triage Chief Complaint: Chest Pain ED Provider: Bong Martines Dx/Rx/DC Orders Clinical Impression: Acute nonspecific chest pain with low risk of coronary artery disease, Polysubstance abuse Instructions: Treating Drug Abuse and Addiction, ED Chest Pain, Noncardiac Prescriptions: No Action hydroxyzine pamoate [Vistaril] 50 mg Capsule 50 mg PO BID PRN (Reason: Anxiety) atomoxetine [Strattera] 25 mg Capsule 25 mg PO DAILY Vivitrol 380 mg Suspension,Extended Rel Recon 380 mg IM QMONTH clindamycin HCl 150 mg capsule 300 mg PO TID Qty: 60 0RF haloperidol decanoate 100 mg/mL solution 100 mg IM QMONTH cephalexin 500 mg capsule 500 mg PO BID Label Comments: TAKE 1 CAPSULE TWICE DAILY quetiapine [Seroquel] 300 mg Tablet 300 mg PO QHS ondansetron 4 mg tablet,disintegrating 4 mg PO Q8H PRN (Reason: nausea and vomiting) Qty: 10 0RF clindamycin HCl 150 mg capsule 300 mg PO 4X/DAY Qty: 80 0RF hydrocodone-acetaminophen [hydrocodone-acetaminophen] 5-325 mg tablet 1 tab PO Q6H PRN PRN (Reason: Pain) 3 Days Qty: 10 0RF Primary Care Provider: Care Physician,No Primary Referrals: Care Physician,No Primary [Primary Care Provider] - Disposition Disposition: Home, Self Care
[2022-12-14] MEDS: LORazepam 2 MG/ML Syringe 0.5 MG IV (23:32)
[2022-12-14] MEDS: Aspirin 325 MG Tablet PO (23:32)
[2022-12-14 23:44] LABS: Absolute Lymphocyte Count 2.92 X10^3/uL (0.83-4.51); Absolute Neutrophil Count 3.8 X10^3/uL (2.0-7.7); Basophil# 0.04 X10^3/uL; Basophil% 0.5 % (0-1); Eosinophil# 0.44 X10^3/uL; Eosinophils% 5.5 % (0-5); Hematocrit 44.3 % (40-54); Hemoglobin 14.4 g/dL (13.0-16.5); Lymphocyte # 2.92 X10^3/ul (0.83-4.51); Lymphocyte % 36.2 % (19-41); Mean Corp Hgb Conc 32.5 g/dL (32-36); Mean Corpuscular Hgb 30.3 pg (27.0-32.0); Mean Corpuscular Volume 93.3 fL (80-94); Mean Platelet Vol. 10.2 fl (6.2-12.0); Monocyte# 0.76 X10^3/uL; Monocyte% 9.4 % (0-10); NRBC Flagged by Analyzer 0 % (0-5); Neutrophil # 3.84 X10^3/uL (2.7-7.7); Neutrophil % 47.7 % (47-70); Platelet Count 371 K/mm3 (150-450); RBC Distribution Width CV 13.2 % (11.6-14.6); Red Blood Count 4.75 M/mm3 (4.6-6.2); White Blood Count 8.1 K/mm3 (4.4-11.0)
--- NOTE | 2022-12-14 23:45 | RAD_ITS ---
INDICATION: chest pain EXAMINATION/TECHNIQUE: X-RAY - XR Chest 2 Views COMPARISON: Two-view chest x-ray from 10/02/2022 FINDINGS: LINES/DEVICES: None. LUNGS: No pulmonary edema or focal airspace consolidation. No sizable pleural effusion. No pneumothorax detected. MEDIASTINUM AND CARDIOVASCULAR STRUCTURES: Heart size within normal limits. Mediastinal contours unremarkable. BONES AND SOFT TISSUES: No acute findings. RAD/Chest PA and Lateral IMPRESSION: No radiographic evidence of acute cardiopulmonary disease. Electronically Signed: Lionel Mendoza MD at 0:12 EST ,
[2022-12-14 23:57] LABS: D-Dimer Quantitative (DVT/PE) 0.42 FEU/ug/m (0.27-0.49)
[2022-12-14 23:59] LABS: Amphetamine Urine VISTA POSITIVE (<1000 ng/mL); Barbiturate Urine VISTA NEGATIVE (< 200 ng/mL); Benzodiazepine Urine VISTA NEGATIVE (< 200 ng/mL); Cocaine Urine VISTA NEGATIVE (< 300 ng/mL); Ecstacy Urine VISTA POSITIVE (< 500 ng/mL); Methadone Urine VISTA NEGATIVE (< 300 ng/mL); PCP Urine VISTA NEGATIVE (< 25 ng/mL); THC Urine VISTA POSITIVE (< 50 ng/mL); Vista UDS pH Range 7
[2022-12-15 00:05] LABS: Anion Gap 8 (5-15); BUN 17 mg/dL (7-18); BUN/Creat Ratio 15.3 RATIO (10-20); Calcium,Total 9.6 mg/dL (8.5-10.1); Chloride 100 mmol/L (98-107); Creatinine, Serum 1.11 mg/dL (0.70-1.30); EST Glomerular Filtration Rate 81 mL/min (>60); Est Glom Filt Rate - Afr Amer 98 mL/min (>60); Estimated Creatinine Clearance 86.22 ml/min; Glucose 107 mg/dL (74-106); Magnesium 2.2 mg/dL (1.6-2.6); Potassium 3.9 mmol/L (3.5-5.1); Sodium Level 139 mmol/L (136-145); Troponin-I HS 3 pg/mL (3.0-78.0)
[2022-12-15 01:45] LABS: Troponin-I HS 3 pg/mL (3.0-78.0)
[2022-12-15 04:10] VITALS: RESP 17; O2SAT 98
[2022-12-15 06:34] VITALS: BP 130/74; PULSE 72; O2SAT 99
== END 2022-12-15 06:34 | disposition home or self-care (01) ==
PROVIDERS: Emergency Provider Emergency Medicine; Visit Provider Emergency Medicine
DX: R07.89 Other chest pain (principal); F19.19 Other psychoactive substance abuse with unspecified psychoactive substance-induced disorder; F31.9 Bipolar disorder, unspecified; F17.210 Nicotine dependence, cigarettes, uncomplicated; Z82.49 Family history of ischemic heart disease and other diseases of the circulatory system; Z86.718 Personal history of other venous thrombosis and embolism
CPT/HCPCS: 71046; 80048; 80307; 83735; 84484; 85025; 85379; 93005; 99284; A4216

== ENCOUNTER 2023-06-16 18:51 | Emergency (ER) | payer MEDICAID, SELFPAY ==
[2023-06-16 18:53] VITALS: BP 132/91; PULSE 118; RESP 15; TEMP 36.6; O2SAT 99; BMI 26.6
[2023-06-16 20:29] LABS: Absolute Lymphocyte Count 1.52 X10^3/uL (0.83-4.51); Absolute Neutrophil Count 7.5 X10^3/uL (2.0-7.7); Basophil# 0.06 X10^3/uL; Basophil% 0.6 % (0-1); Eosinophil# 0.12 X10^3/uL; Eosinophils% 1.2 % (0-5); Hemoglobin 15.1 g/dL (13.0-16.5); Lymphocyte # 1.52 X10^3/ul (0.83-4.51); Mean Corp Hgb Conc 32.8 g/dL (32-36); Mean Corpuscular Volume 91.3 fL (80-94); Mean Platelet Vol. 9.8 fl (6.2-12.0); Monocyte# 0.97 X10^3/uL; Monocyte% 9.6 % (0-10); NRBC Flagged by Analyzer 0 % (0-5); Neutrophil # 7.45 X10^3/uL (2.7-7.7); Neutrophil % 73.4 % (47-70); Platelet Count 367 K/mm3 (150-450); RBC Distribution Width CV 12.5 % (11.6-14.6); RBC Distribution Width SD 41.3 fl (35.1-43.9); Red Blood Count 5.04 M/mm3 (4.6-6.2); White Blood Count 10.1 K/mm3 (4.4-11.0)
[2023-06-16 20:40] LABS: Amphetamine Urine VISTA POSITIVE (<1000 ng/mL); Barbiturate Urine VISTA NEGATIVE (< 200 ng/mL); Benzodiazepine Urine VISTA NEGATIVE (< 200 ng/mL); Cocaine Urine VISTA NEGATIVE (< 300 ng/mL); Ecstacy Urine VISTA NEGATIVE (< 500 ng/mL); Methadone Urine VISTA NEGATIVE (< 300 ng/mL); PCP Urine VISTA NEGATIVE (< 25 ng/mL); THC Urine VISTA POSITIVE (< 50 ng/mL); Vista UDS pH Range 6
[2023-06-16 20:46] LABS: Anion Gap 6 (5-15); BUN 9 mg/dL (7-18); BUN/Creat Ratio 8.2 RATIO (10-20); Calcium,Total 9.7 mg/dL (8.5-10.1); Chloride 108 mmol/L (98-107); EST Glomerular Filtration Rate 82 mL/min (>60); Est Glom Filt Rate - Afr Amer 99 mL/min (>60); Estimated Creatinine Clearance 86.19 ml/min; Glucose 62 mg/dL (74-106); Potassium 4.5 mmol/L (3.5-5.1); Sodium Level 143 mmol/L (136-145)
[2023-06-16 20:48] LABS: Alcohol, Blood (Medical)-Serum < 3.0 mg/dL
== END 2023-06-16 22:00 | disposition left against medical advice (07) ==
LOC: ED 22:16
DX: F11.23 Opioid dependence with withdrawal (principal)
CPT/HCPCS: 80048; 80307; 82077; 85025

== ENCOUNTER 2023-09-15 00:31 | Emergency (ER) | payer MEDICAID, SELFPAY ==
[2023-09-15 00:32] VITALS: BP 123/99; PULSE 94; RESP 16; TEMP 36.4; O2SAT 100; BMI 26.0
--- NOTE | 2023-09-15 00:33 | EX.ED.DYSGE1 ---
HPI History of Present Illness Chief Complaint: General Illness Informant: patient and spouse/S.O. Narrative Narrative: Patient is a 33-year-old male with past medical history of anxiety asthma bipolar disorder and schizoaffective disease. He states that his significant other son has been sick at home over the last few days. He states he has had bouts of nausea and had 3 episodes of emesis. He reports that he felt chilled which concerned him for potential infection and therefore he comes in for evaluation. PFSH PFS Medical History Anxiety Asthma Bipolar disorder Carpal tunnel syndrome on right DVT (deep venous thrombosis) Intermittent explosive disorder in adult Mitral valve prolapse Polysubstance (excluding opioids) dependence PTSD (post-traumatic stress disorder) Schizo affective schizophrenia Schizophrenia Home Medications haloperidol decanoate 100 mg/mL intramuscular solution 100 mg IM QMONTH 07/28/22 [History Last Taken Unknown] ondansetron 4 mg disintegrating tablet 4 mg PO TID PRN nausea and vomiting #21 tabs 09/15/23 [Rx Last Taken Unknown] Allergy/AdvReac Type Severity Reaction Status Date / Time amoxicillin Allergy Anaphylaxis Verified 06/16/23 18:52 Penicillins Allergy Anaphylaxis Verified 06/16/23 18:52 Social History (Updated 10/16/22 @ 14:[address] Justen Crooks MD) household members: significant other Smoking Status: Current every day smoker tobacco type: cigarettes alcohol intake: current ROS ROS ED Constitutional Constitutional ED: Reports chills and subjective Eyes Eyes: Denies change in vision ENT ENT ED: Denies rhinorrhea or sore throat Cardiovascular Cardiovascular: Denies chest pain Respiratory/Chest Respiratory/Chest: Denies cough Gastrointestinal Gastrointestinal: Reports abdominal pain, nausea and vomiting; Denies diarrhea Genitourinary Genitourinary ED: Denies dysuria Musculoskeletal Musculoskeletal: Reports myalgias Integumentary Denies rash Neurologic Neurologic: Denies headache(s) Hematologic/Lymphatic Hematologic/Lymphatic: Denies easy bleeding or easy bruising EXAM Physical Exam Const Vital Signs: 09/15/23 00:32 09/15/23 00:35 Temperature 97.6 F L Temperature Source Oral Pulse Rate 94 Respiratory Rate 16 Respiratory Effort Normal Non-Labored Respiratory Pattern Normal Blood Pressure 123/99 H Blood Pressure Mean 107 Pulse Ox 100 Oxygen Delivery Method Room Air Positive well nourished and well developed General Appearance ED: well developed; Negative for pallor HEENT Reports moist mucous membranes HEENT Narrative: No tongue or lip swelling no oral lesions no airway edema or compromise No signs of infection noted in the posterior pharynx Eyes PERRL and EOMs intact bilaterally General Eye ED: Negative for scleral icterus Neck supple Neck Narrative: No nuchal rigidity or meningeal signs Resp normal respiratory effort and clear to auscultation bilaterally Cardio regular rate and regular rhythm Rate: other Other Details: No murmurs rubs or gallops noted Radial and carotid pulses equal and symmetric GI non-tender and non-distended GI Narrative: Abdomen is soft nontender nondistended with hyperactive bowel sounds No voluntary guarding or rigidity No pulsatile mass or fluid wave Negative heel strike psoas and obturator signs Auscultation: hyperactive bowel sounds Palpation: soft Back/Spine no CVA tenderness Extremity normal to inspection Neuro oriented x3, CN's II-XII intact bilaterally and no sensory deficits noted Sensorium / Orientation: alert Motor Exam: strength 5/5 throughout Psych Psych Narrative: Patient has a flat affect Skin no rashes or lesions noted and skin turgor normal General Skin Exam: Negative for jaundice or pallor MDM MDM MDM Narrative Medical decision making narrative: Patient presented to the ER with stable vitals and a nonfocal exam. Differential diagnosis is for viral gastroenteritis versus other viral infection such as COVID or influenza versus [place] abnormality versus pancreatitis versus biliary colic versus colitis. I discussed with the patient obtaining viral swabs and basic laboratory studies based on his subjective chills and bouts of vomiting. Patient states that as I feel this is most likely viral and his physical exam does not indicate signs of dehydration and that is vitals are stable he does not want any type of testing performed. Therefore he will be given Zofran to help with his nausea and vomiting but as exam is nonfocal and vital stable he is otherwise safe for discharge History & Record Review Discussion w/independent historian: Patient and Significant other Discharge Plan Triage Chief Complaint: General Illness ED Provider: Bong Martines Dx/Rx/DC Orders Clinical Impression: Viral syndrome, Bipolar disorder, Schizoaffective disorder Instructions: ED Viral Syndrome (Adult) Prescriptions: New ondansetron 4 mg tablet,disintegrating 4 mg PO TID PRN (Reason: nausea and vomiting) Qty: 21 0RF No Action haloperidol decanoate 100 mg/mL solution 100 mg IM QMONTH Primary Care Provider: Care Physician,No Primary Referrals: Cristiano Martinez MD [Med Staff - Active Staff] - Care Physician,No Primary [Primary Care Provider] - Activity Restrictions/Additional Instructions: Your symptoms are consistent with a viral infection which will last on average 3 to 7 days. Use Tylenol and Motrin to help with the chills sensation and use the Zofran to prevent nausea and vomiting. Keep yourself well-hydrated and return to the ER should you have any further concerns Disposition Disposition: Home, Self Care Discharge Date/Time: 09/15/23 01:36
[2023-09-15] MEDS: Ondansetron ODT 4 MG Tablet PO (01:34)
== END 2023-09-15 01:36 | disposition home or self-care (01) ==
LOC: ED 01:07
PROVIDERS: Emergency Provider Emergency Medicine; Visit Provider Emergency Medicine
DX: B34.9 Viral infection, unspecified (principal); F25.9 Schizoaffective disorder, unspecified; F31.9 Bipolar disorder, unspecified; F17.210 Nicotine dependence, cigarettes, uncomplicated; Z79.899 Other long term (current) drug therapy
CPT/HCPCS: 99282

== ENCOUNTER 2023-09-23 01:05 | Emergency (ER) | payer MEDICAID, SELFPAY ==
[2023-09-23 01:11] VITALS: BP 124/82; PULSE 126; RESP 16; TEMP 35.8; O2SAT 99; BMI 24.7
--- NOTE | 2023-09-23 01:12 | CT_ITS ---
INDICATION: confusion, headache EXAMINATION: CT BRAIN - CT Head or Brain W/O Contrast Injection TECHNIQUE: Multiple axial images were obtained of the head without intravenous contrast. A radiation dose optimization technique was used for this scan. IV Contrast dosage and agent: None. RADIATION DOSAGE (If Supplied By Facility): CTDIvol = ( 44.99 ) mGy, DLP = ( 849.54 ) mGycm COMPARISON: No relevant prior comparison study available FINDINGS: BRAIN PARENCHYMA: No intra- or extra-axial hemorrhage. No evidence of acute infarct. No intracranial mass or mass effect. There is preservation of the avila/white matter interface. Posterior fossa structures are unremarkable. No parenchymal abnormality. CSF SPACES: No cerebral volume loss. No hydrocephalus. Basal cisterns are patent. CALVARIUM, SKULL BASE, PARANASAL SINUSES AND MASTOID AIR CELLS: The mastoid air cells and visualized paranasal sinuses are well aerated. The calvarium is intact. No discrete lytic or blastic abnormalities. ORBITS: Both globes, extraocular muscles, optic nerves and retrobulbar fat appear unremarkable. CT/Brain/Head without Contrast IMPRESSION: No acute intracranial finding. Electronically Signed: Phani Shields MD at 1:51 EST ,
--- NOTE | 2023-09-23 01:12 | EKG12_ITS ---
Test Reason : DYSRHYTHMIA Blood Pressure : / mmHG Vent. Rate : 118 BPM Atrial Rate : 118 BPM P-R Int : 162 ms QRS Dur : 098 ms QT Int : 326 ms P-R-T Axes : 060 045 025 degrees QTc Int : 456 ms Sinus tachycardia Incomplete right bundle branch block Borderline ECG Confirmed by JESSICA SCHULZ, MALIK ([id number]), medical transcription editor CARMEN GOODSON ([id number]) on 09/24/2023 5:56:27 AM Referred By: Confirmed By:MALIK LOPEZ MD
--- NOTE | 2023-09-23 01:15 | EX.ED.DYSGE1 ---
HPI History of Present Illness Chief Complaint: Headache Informant: patient Narrative Narrative: Patient presents with recurrent episodes of headache and confusion. Most recent episode started about 20 minutes ago. He states he will get a generalized headache often during or after his confusion episodes. He has been feeling confused and he recognizes that he is not thinking clearly. He states that typically last only a few minutes and then resolves. He does feel that his been getting more frequent. He states he is also taking meth, heroin, and weed and thinks that these episodes do seem to correlate with when he uses weed. [facility] Medical History (Updated 09/23/23 @ 02:[address] Flower Kirby MD) Anxiety Asthma Asthma Bipolar disorder Carpal tunnel syndrome on right Depression DVT (deep venous thrombosis) Intermittent explosive disorder in adult Kidney stones Mitral valve prolapse Polysubstance (excluding opioids) dependence PTSD (post-traumatic stress disorder) Schizo affective schizophrenia Schizophrenia Smoker Substance abuse TIA (transient ischemic attack) Home Medications haloperidol decanoate 100 mg/mL intramuscular solution 100 mg IM QMONTH 07/28/22 [History Last Taken 09/15/23] ondansetron 4 mg disintegrating tablet 4 mg PO TID PRN nausea and vomiting #21 tabs 09/15/23 [Rx Last Taken Unknown] Allergy/AdvReac Type Severity Reaction Status Date / Time amoxicillin Allergy Anaphylaxis Verified 06/16/23 18:52 Penicillins Allergy Anaphylaxis Verified 06/16/23 18:52 Social History household members: significant other Smoking Status: Current every day smoker tobacco type: cigarettes alcohol intake: current ROS ROS ED Constitutional Constitutional ED: Denies chills or fever(s) Eyes Eyes: Denies discharge from eye(s) ENT ENT ED: Denies discharge from eye(s), rhinorrhea or sore throat Cardiovascular Cardiovascular: Denies chest pain Respiratory/Chest Respiratory/Chest: Denies cough or dyspnea Gastrointestinal Gastrointestinal: Denies abdominal pain, nausea or vomiting Genitourinary Genitourinary ED: Denies dysuria Musculoskeletal Musculoskeletal: Denies back pain or extremity pain Integumentary Denies Abrasions or rash Neurologic Neurologic: Reports headache(s) and other Details: Confusion ; Denies weakness Psychiatric Psychiatric: Reports anxiety; Denies depression Allergic/Immunologic Allergic/Immunologic ED: Denies lip swelling or urticaria EXAM Physical Exam Const Vital Signs: 09/23/23 01:11 09/23/23 02:49 Temperature 96.5 F L Temperature Source Temporal Pulse Rate 126 H 95 Respiratory Rate 16 12 Blood Pressure 124/82 H 121/85 H Blood Pressure Mean 96 97 Pulse Ox 99 100 Oxygen Delivery Method Room Air Positive well nourished and well developed General Appearance ED: well developed HEENT Reports moist mucous membranes Eyes EOMs intact bilaterally Chest Wall inspection of chest normal and palpation of chest normal Resp normal respiratory effort and clear to auscultation bilaterally Cardio Rate: tachycardic GI non-tender Palpation: soft Extremity normal to inspection Neuro Neuro Narrative: NIH equals 1 at the time of my exam. He receives 1 point for altered sensation to light touch on the left side of his face. Psych mental status grossly normal Skin no rashes or lesions noted MDM MDM MDM Narrative Medical decision making narrative: IV line established. Patient given IV fluids. EKG obtained to evaluate for cardiac arrhythmia/ischemia. Labwork obtained to evaluate for leukocytosis, anemia, and electrolyte derangement. CT scan of the head obtained to evaluate for edema, infarct, acute abnormality. History & Record Review Discussion w/independent historian: Patient and Family Additional record(s) reviewed:: Prior ED visit and Prior labs Lab Data Attestation: I reviewed the patient's lab results. Labs: Laboratory Results - last 24 hr 09/23/23 09/23/23 09/23/23 01:10 01:20 02:25 WBC 8.3 RBC 4.27 L Hgb 13.1 Hct 39.3 L MCV 92.0 MCH 30.7 MCHC 33.3 RDW Std Deviation 42.5 RDW Coeff of Katie 12.7 Plt Count 316 MPV 9.8 Immature Gran % (Auto) 0.200 Neut % (Auto) 56.7 Lymph % (Auto) 29.8 [place] % (Auto) 9.2 Eos % (Auto) 3.6 Baso % (Auto) 0.5 Absolute Neuts (auto) 4.7 Absolute Lymphs (auto) 2.47 Nucleated RBC % 0 Sodium 138 Potassium 3.5 Chloride 105 Carbon Dioxide 29.0 Anion Gap 4 L BUN 17 Creatinine 1.02 Estim Creat Clear Calc 92.95 Est GFR (MDRD) Af Amer 108 Est GFR (MDRD) Non-Af 89 BUN/Creatinine Ratio 16.7 Glucose 125 H Calcium 9.3 Urine Opiates Screen NEGATIVE Urine Methadone Screen NEGATIVE Ur Barbiturates Screen NEGATIVE Ur Phencyclidine Scrn NEGATIVE Ur Amphetamines Screen POSITIVE H MDMA (Ecstasy) Screen POSITIVE H U Benzodiazepines Scrn NEGATIVE Urine Cocaine Screen NEGATIVE U Cannabinoids Screen POSITIVE H Ur Drug Screen Comment Ethyl Alcohol < 3.0 POC Glucose 116 H Radiography Diagnostic Testing: Clinical Impression(s) from Imaging Studies Brain CT 09/23/23 01:12 IMPRESSION: No acute intracranial finding. Electronically Signed: Phani Shields MD at 1:51 EST Reading Location ID and State: [facility] / [place] Tel , Service support , EKG Initial EKG: Attestation: I personally reviewed and interpreted this EKG as follows: Interpretation: Sinus Tachycardia (Sinus tachycardia at 118. No acute ischemia.) Treatment and Re-Evaluation :: CBC was a white count of 8.3 with a hemoglobin of 13.1. Chemistry studies unremarkable. EtOH is less than 3. Talk screen is positive for amphetamines, MDMA, and cannabinoids. CT scan of the head reveals no acute findings. EKG is sinus tachycardia with no acute ischemia. With observation and IV fluids patient's heart rate is now in the 90s. At this time patient states he feels much improved. We did discuss his drug use as he states these symptoms seem to come on when he uses weed. I do feel they are likely anxiety mediated. He will follow-up with Dr. Ji at the counseling center. Return instructions are given. Discharge Plan Triage Chief Complaint: Headache ED Provider: Flower Kirby Dx/Rx/DC Orders Clinical Impression: Anxiety, Confusion, Polysubstance abuse Instructions: ED Anxiety Reaction, ED Confusion Prescriptions: No Action haloperidol decanoate 100 mg/mL solution 100 mg IM QMONTH ondansetron 4 mg tablet,disintegrating 4 mg PO TID PRN (Reason: nausea and vomiting) Qty: 21 0RF Primary Care Provider: Care Physician,No Primary Referrals: Counseling,Center [Group of Physicians] - As soon as possible Care Physician,No Primary [Primary Care Provider] - Disposition Disposition: Home, Self Care
[2023-09-23 01:27] LABS: Absolute Lymphocyte Count 2.47 X10^3/uL (0.83-4.51); Absolute Neutrophil Count 4.7 X10^3/uL (2.0-7.7); Basophil# 0.04 X10^3/uL; Basophil% 0.5 % (0-1); Eosinophils% 3.6 % (0-5); Hematocrit 39.3 % (40-54); Hemoglobin 13.1 g/dL (13.0-16.5); Lymphocyte # 2.47 X10^3/ul (0.83-4.51); Lymphocyte % 29.8 % (19-41); Mean Corp Hgb Conc 33.3 g/dL (32-36); Mean Corpuscular Hgb 30.7 pg (27.0-32.0); Mean Platelet Vol. 9.8 fl (6.2-12.0); Monocyte# 0.76 X10^3/uL; Monocyte% 9.2 % (0-10); NRBC Flagged by Analyzer 0 % (0-5); Neutrophil # 4.69 X10^3/uL (2.7-7.7); Neutrophil % 56.7 % (47-70); Platelet Count 316 K/mm3 (150-450); RBC Distribution Width CV 12.7 % (11.6-14.6); RBC Distribution Width SD 42.5 fl (35.1-43.9); Red Blood Count 4.27 M/mm3 (4.6-6.2); White Blood Count 8.3 K/mm3 (4.4-11.0)
[2023-09-23] MEDS: 0.9% Normal Saline (1000mL) 1,000 ML 1000 ML IV (01:27)
[2023-09-23 01:34] LABS: Bedside Glucose 116 mg/dL (74-106)
[2023-09-23 01:41] LABS: Anion Gap 4 (5-15); BUN 17 mg/dL (7-18); BUN/Creat Ratio 16.7 RATIO (10-20); Calcium,Total 9.3 mg/dL (8.5-10.1); Chloride 105 mmol/L (98-107); Creatinine, Serum 1.02 mg/dL (0.70-1.30); EST Glomerular Filtration Rate 89 mL/min (>60); Est Glom Filt Rate - Afr Amer 108 mL/min (>60); Estimated Creatinine Clearance 92.95 ml/min; Glucose 125 mg/dL (74-106); Potassium 3.5 mmol/L (3.5-5.1); Sodium Level 138 mmol/L (136-145)
[2023-09-23 01:49] LABS: Alcohol, Blood (Medical)-Serum < 3.0 mg/dL
[2023-09-23 02:45] LABS: Amphetamine Urine VISTA POSITIVE (<1000 ng/mL); Barbiturate Urine VISTA NEGATIVE (< 200 ng/mL); Benzodiazepine Urine VISTA NEGATIVE (< 200 ng/mL); Cocaine Urine VISTA NEGATIVE (< 300 ng/mL); Ecstacy Urine VISTA POSITIVE (< 500 ng/mL); Methadone Urine VISTA NEGATIVE (< 300 ng/mL); PCP Urine VISTA NEGATIVE (< 25 ng/mL); THC Urine VISTA POSITIVE (< 50 ng/mL); Vista UDS pH Range 4
[2023-09-23 02:49] VITALS: BP 121/85; PULSE 95; RESP 12; O2SAT 100
[2023-09-23 03:12] VITALS: BP 126/80; PULSE 89; RESP 16; O2SAT 99
== END 2023-09-23 03:13 | disposition home or self-care (01) ==
PROVIDERS: Emergency Provider Emergency Medicine; Visit Provider Emergency Medicine
DX: F41.9 Anxiety disorder, unspecified (principal); F25.9 Schizoaffective disorder, unspecified; F11.10 Opioid abuse, uncomplicated; R41.0 Disorientation, unspecified; R51.9 Headache, unspecified; J45.909 Unspecified asthma, uncomplicated; F32.A Depression, unspecified; F63.81 Intermittent explosive disorder; F43.10 Post-traumatic stress disorder, unspecified; F17.210 Nicotine dependence, cigarettes, uncomplicated; Z86.73 Personal history of transient ischemic attack (TIA), and cerebral infarction without residual deficits; Z79.899 Other long term (current) drug therapy; Z86.718 Personal history of other venous thrombosis and embolism; F12.10 Cannabis abuse, uncomplicated
CPT/HCPCS: 70450; 80048; 80307; 82077; 82962; 85025; 93005; 96360; 99284; J7030; A4216

== ENCOUNTER 2023-12-16 15:24 | Emergency (ER) | payer MEDICAID, SELFPAY ==
--- NOTE | 2023-12-16 16:42 | PCM.HP.STD ---
HPI - General General Date of Admission: 12/16/23 HPI Narrative ADRIANE VASQUES, is a 33 M who presents to the hospital requesting detox from fentanyl and meth. He no longer injects methamphetamines however his last injection was about a year ago and has not been checked for HIV or hepatitis C since then. His last use of fentanyl was this morning and he smokes fentanyl he also smoked marijuana today as well. He does not feel he is going through significant withdrawal at the moment but he felt like he needed to get his life under control and so wanted to pursue detox. He does not he is ever gone through detox before but he has gone through inpatient rehab prior. [facility] Medical History (Updated 12/16/23 @ 16:[address] Howard Hussein MD) Anxiety Asthma Asthma Bipolar disorder Carpal tunnel syndrome on right Depression DVT (deep venous thrombosis) Intermittent explosive disorder in adult Kidney stones Mitral valve prolapse Polysubstance (excluding opioids) dependence PTSD (post-traumatic stress disorder) Schizo affective schizophrenia Schizophrenia Smoker Substance abuse TIA (transient ischemic attack) Home Medications haloperidol decanoate 100 mg/mL intramuscular solution 100 mg IM QMONTH 07/28/22 [History Last Taken 09/15/23] ondansetron 4 mg disintegrating tablet 4 mg PO TID PRN nausea and vomiting #21 tabs 09/15/23 [Rx Last Taken Unknown] Allergy/AdvReac Type Severity Reaction Status Date / Time amoxicillin Allergy Anaphylaxis Verified 06/16/23 18:52 Penicillins Allergy Anaphylaxis Verified 06/16/23 18:52 Family History (Updated 12/16/23 @ 16:[address] Howard Hussein MD) Other Diabetes no surgical history Social History household members: significant other Smoking Status: Current every day smoker tobacco type: cigarettes alcohol intake: current ROS Constitutional Constitutional: Denies chills, fatigue, fever(s) or malaise Eyes Eyes: Denies blurry vision ENT HEENT: Denies headache(s) or nasal discharge Cardiovascular Cardiovascular: Denies chest pain, dyspnea on exertion or syncope Respiratory/Chest Respiratory/Chest: Denies cough, shortness of breath at rest or shortness of breath with exertion Gastrointestinal Gastrointestinal: Denies constipation, diarrhea, nausea or vomiting Genitourinary Genitourinary: Denies dysuria Neurologic Neurologic: Denies focal weakness, numbness or tremor(s) Psychiatric Psychiatric: Denies anxiety or depression Physical Exam Narrative General: Alert, Oriented x3, Cooperative, No apparent distress HEENT: Atraumatic, PERRLA, EOMI, Normocephalic Oral: Moist Mucosa Neck: Supple, No JVD Lungs: Clear to auscultation, Normal air movement, No rhonchi, No wheeze, No rales Cardiovascular: Regular rate, Regular Rhythm, Normal S1, Normal S2, No murmurs Abdomen: Soft, Non Tender, Non-Distended, No Hepato-splenomegaly Extremities: No edema, Capillary Refill Less than 3 Seconds Skin: No rashes, No breakdown Musculoskeletal: No Tenderness to Palpation of Joints or Extremities Neurological: No focal neurological deficits, Motor Exam 5/5 strength throughout, Sensory exam intact to light touch and pain Psych/Mental Status: Normal Affect, Appropriate Assessment & Plan Assessment/Plan (1) Opiate addiction: PLAN: Plan 1. Opiate detox/schizoaffective disorder ? Continue with the opiate withdrawal protocol ? Will discover what his injected Haldol dosages and can reorder that on admission ? Will have him follow-up with 180 for discharge planning 2. Asthma ? Can resume his home inhalers ? Not currently in exacerbation ? States that he takes an inhaled steroid as well as a rescue inhaler DVT: Ambulation Charges/Coding Visit Charges Inpatient E&M: 73862 Init Hosp L2
== END 2023-12-16 15:50 | disposition left against medical advice (07) ==
LOC: ED 15:28 → MS3 15:30
PROVIDERS: Emergency Provider Family Medicine; Visit Provider Family Medicine
DX: F11.20 Opioid dependence, uncomplicated (principal); F25.9 Schizoaffective disorder, unspecified; F15.20 Other stimulant dependence, uncomplicated; F17.200 Nicotine dependence, unspecified, uncomplicated; Z79.899 Other long term (current) drug therapy